=== PATIENT | female | born 1970 | race Two or more races ===

== ENCOUNTER 2024-04-07 13:49 | Inpatient (IN) | payer MEDICAID, OTHER ==
[~2024-04-07] VITALS: Ht 152.4 cm; Wt 50.9 kg
[2024-04-07] MEDS: SODIUM CHLORIDE 0.9% 1,000 ML IV ONE ×2 (15:15)
[2024-04-07 15:32] LABS: Basophils # (auto) 0 10 ^3/uL (0-0.2); Basophils % (auto) 0.4 % (0.0-2.0); Eosinophils # (auto) 0.1 10 ^3/uL (0-0.8); Eosinophils % (auto) 2.3 % (0.0-7.0); Hematocrit 33.9 % (36.0-46.0); Hemoglobin 11.5 g/dL (12.2-16.2); Lymphocytes # (auto) 0.6 10 ^3/uL (0.4-5.4); Lymphocytes % (auto) 18.1 % (10.0-50.0); Mean Corpuscular Hemoglobin 28.8 pg (28.0-32.0); Mean Corpuscular Hgb Conc. 33.9 g/dL (32.0-36.0); Monocytes # (auto) 0.5 10 ^3/uL (0-1.3); Monocytes % (auto) 13.4 % (0.0-12.0); Neutrophils # (auto) 2.2 10 ^3/uL (1.6-8.6); Neutrophils % (auto) 65.8 % (37.0-80.0); Nucleated Red Blood Cells % 0.1 %; Platelet Count (auto) 130 10^3/uL (140-450); Red Blood Cells 3.99 10^6/uL (4.0-5.20); Red Cell Distribution Width 18.7 % (11.8-14.3); White Blood Cell 3.4 10^3/uL (4.4-10.8)
[2024-04-07 15:39] LABS: Chloride 111 mmol/L (98-107); Potassium 3.2 mmol/L (3.5-5.1); Sodium 141 mmol/L (136-145)
[2024-04-07 15:40] LABS: Anion Gap 8 (5-15); Carbon Dioxide 22 mmol/L (20-30)
[2024-04-07 15:41] LABS: Calcium 8.2 mg/dL (8.7-10.4)
[2024-04-07 15:46] LABS: BUN/Creatinine Ratio 20.4 (10.0-20.0); Blood Urea Nitrogen 10 mg/dL (9-23); Glucose 87 mg/dL (74-106)
[2024-04-07 18:28] VITALS: PULSE 84; RESP 20; O2SAT 98
[2024-04-07 19:53] LABS: Urine Bacteria None Seen /hpf (None Seen)
[2024-04-07 20:08] LABS: Urine Blood Negative /uL (Negative); Urine Clarity Clear (Clear); Urine Color Colorless (Yellow); Urine Protein, UAD Negative (Negative); Urine Specific Gravity 1.005 (1.001-1.035); Urine Urobilinogen Normal (Negative); Urine WBC <1 /hpf (0 - 5); Urine pH 6.5 (5.0-9.0)
[2024-04-08] MEDS ORDERED: ONDANSETRON HCL 4 MG/2 ML VIAL IV PRN (01:15)
[2024-04-08] MEDS ORDERED: ACETAMINOPHEN 325 MG TAB PO PRN (01:15)
[2024-04-08] MEDS ORDERED: MORPHINE SULFATE INJ 2 MG/ml SYRG IV PRN (01:15)
[2024-04-08] MEDS ORDERED: NITROGLYCERIN 0.4 MG SL TAB SL PRN (01:15)
[2024-04-08] MEDS ORDERED: DOCUSATE SOD 100 MG CAP PO PRN (01:15)
[2024-04-08 05:11] LABS: Basophils # (auto) 0 10 ^3/uL (0-0.2); Basophils % (auto) 0.3 % (0.0-2.0); Eosinophils # (auto) 0.1 10 ^3/uL (0-0.8); Eosinophils % (auto) 1.6 % (0.0-7.0); Hematocrit 30.4 % (36.0-46.0); Hemoglobin 10.5 g/dL (12.2-16.2); Lymphocytes # (auto) 0.7 10 ^3/uL (0.4-5.4); Lymphocytes % (auto) 17.2 % (10.0-50.0); Mean Corpuscular Hemoglobin 29.3 pg (28.0-32.0); Mean Corpuscular Hgb Conc. 34.5 g/dL (32.0-36.0); Mean Corpuscular Volume 84.8 fL (80.0-100.0); Monocytes # (auto) 0.6 10 ^3/uL (0-1.3); Monocytes % (auto) 14.8 % (0.0-12.0); Neutrophils # (auto) 2.7 10 ^3/uL (1.6-8.6); Neutrophils % (auto) 66.1 % (37.0-80.0); Nucleated Red Blood Cells % 0.4 %; Platelet Count (auto) 115 10^3/uL (140-450); Red Blood Cells 3.58 10^6/uL (4.0-5.20); Red Cell Distribution Width 18.6 % (11.8-14.3); White Blood Cell 4.1 10^3/uL (4.4-10.8)
[2024-04-08 05:27] LABS: Alanine Aminotransferase 21 U/L (7-40); Albumin 2.5 g/dL (3.2-4.8); Alkaline Phosphatase 68 U/L (46-116); Anion Gap 9 (5-15); Aspartate Aminotransferase 53 U/L (13-40); Bilirubin, Total 0.3 mg/dL (0.2-1.0); Blood Urea Nitrogen 8 mg/dL (9-23); Calcium 7.7 mg/dL (8.7-10.4); Carbon Dioxide 21 mmol/L (20-30); Chloride 115 mmol/L (98-107); Glucose 86 mg/dL (74-106); Potassium 3.1 mmol/L (3.5-5.1); Sodium 145 mmol/L (136-145); Total Protein 6.1 g/dL (5.7-8.2)
[2024-04-08] MEDS: SODIUM CHLOR 0.9% PF (SALINE LOCK) 10ML VIAL/SYR IV SCH (06:08)
[2024-04-08 08:00] VITALS: PULSE 71; RESP 16; O2SAT 96
[2024-04-08] MEDS: HYDROcodone-ACET 5/325MG TAB PO PRN (09:35)
[2024-04-08] MEDS: SODIUM CHLORIDE 0.9% 1,000 ML IV SCH (13:49)
[2024-04-08 18:12] VITALS: PULSE 81; RESP 20; O2SAT 98
[2024-04-08] MEDS: POTASSIUM CHL 20MEQ/100ML 100 ML IV SCH (18:22)
[2024-04-08 21:37] VITALS: BP 106/74; PULSE 99; RESP 16; RESP 18; TEMP 98.6; O2SAT 97
[2024-04-08 22:00] VITALS: BP 106/74; PULSE 79; RESP 18; TEMP 98.6; O2SAT 97
[2024-04-08] MEDS: MECLIZINE HCL 25 MG TAB PO PRN (22:14)
[2024-04-08] MEDS: DOCUSATE SOD 100 MG CAP PO SCH (22:14)
[2024-04-09] VITALS (8 sets, daily range): BP systolic 102–116; BP diastolic 62–78; PULSE 73–93; RESP 16–20; TEMP 98.1–98.6; O2SAT 93–97
[2024-04-09 07:09] LABS: Hematocrit 29.4 % (36.0-46.0); Mean Corpuscular Hemoglobin 29.1 pg (28.0-32.0); Mean Corpuscular Hgb Conc. 33.9 g/dL (32.0-36.0); Mean Corpuscular Volume 85.9 fL (80.0-100.0); Platelet Count (auto) 101 10^3/uL (140-450); Red Blood Cells 3.43 10^6/uL (4.0-5.20); Red Cell Distribution Width 19.2 % (11.8-14.3); White Blood Cell 3.6 10^3/uL (4.4-10.8)
[2024-04-09 07:20] LABS: Alanine Aminotransferase 18 U/L (7-40); Alkaline Phosphatase 62 U/L (46-116); Anion Gap 6 (5-15); Calcium 7.6 mg/dL (8.7-10.4); Carbon Dioxide 23 mmol/L (20-30); Chloride 118 mmol/L (98-107); Glucose 81 mg/dL (74-106); Magnesium 1.9 mg/dL (1.6-2.6); Potassium 3.3 mmol/L (3.5-5.1); Sodium 147 mmol/L (136-145)
[2024-04-09 07:21] LABS: Albumin 2.2 g/dL (3.2-4.8); Aspartate Aminotransferase 53 U/L (13-40); BUN/Creatinine Ratio 12.2 (10.0-20.0); Bilirubin, Total 0.3 mg/dL (0.2-1.0); Blood Urea Nitrogen < 5 mg/dL (9-23); Total Protein 5.5 g/dL (5.7-8.2)
[2024-04-09 07:22] LABS: Basophils % (manual) 0 (0.0-2.0); Blast Cells 0; Metamyelocytes % 0; Myelocytes % 0; Promyelocytes % 0; Reactive Lymphocytes 0
[2024-04-09] MEDS: POTASSIUM EFFERVESENT TAB 25 MEQ PO ONE (08:30)
[2024-04-09 08:43] LABS: Hepatitis B Surface Antigen Negative (Negative)
[2024-04-09 09:05] LABS: Hepatitis C Antibody Negative (Negative)
[2024-04-09 09:12] LABS: Band Neutrophils % (manual) 3; Lymphocytes % (manual) 22 (10.0-50.0)
[2024-04-09 09:13] LABS: Anisocytosis Slight; Eosinophils % (manual) 3 (0-7); Monocytes % (manual) 20 (0-12); Platelet Estimate Decreased
[2024-04-09] MEDS: LORazepam 2MG/ML-1ML VIAL IV PRN (10:53)
[2024-04-10 00:36] VITALS: BP 102/59; PULSE 97; RESP 18; TEMP 98.6; O2SAT 92
[2024-04-10 05:00] VITALS: BP 100/65; PULSE 86; RESP 17; TEMP 98.7; O2SAT 94
[2024-04-10 06:27] LABS: Basophils # (auto) 0 10 ^3/uL (0-0.2); Basophils % (auto) 0.3 % (0.0-2.0); Eosinophils # (auto) 0.1 10 ^3/uL (0-0.8); Eosinophils % (auto) 2.7 % (0.0-7.0); Hemoglobin 10.3 g/dL (12.2-16.2); Lymphocytes # (auto) 0.8 10 ^3/uL (0.4-5.4); Lymphocytes % (auto) 20.3 % (10.0-50.0); Mean Corpuscular Hemoglobin 29.2 pg (28.0-32.0); Mean Corpuscular Hgb Conc. 34.2 g/dL (32.0-36.0); Mean Corpuscular Volume 85.5 fL (80.0-100.0); Monocytes # (auto) 0.5 10 ^3/uL (0-1.3); Monocytes % (auto) 12.4 % (0.0-12.0); Neutrophils # (auto) 2.5 10 ^3/uL (1.6-8.6); Neutrophils % (auto) 64.3 % (37.0-80.0); Platelet Count (auto) 110 10^3/uL (140-450); Red Blood Cells 3.51 10^6/uL (4.0-5.20); Red Cell Distribution Width 18.7 % (11.8-14.3); White Blood Cell 3.9 10^3/uL (4.4-10.8)
[2024-04-10 06:38] LABS: Anion Gap 7 (5-15); Carbon Dioxide 24 mmol/L (20-30); Chloride 113 mmol/L (98-107); Potassium 3.4 mmol/L (3.5-5.1); Sodium 144 mmol/L (136-145)
[2024-04-10 06:39] LABS: Calcium 7.9 mg/dL (8.7-10.4)
[2024-04-10 06:44] LABS: Blood Urea Nitrogen 8 mg/dL (9-23); Glucose 85 mg/dL (74-106)
[2024-04-10 07:25] LABS: INR 1.1 (0.9-1.15); Prothrombin Time 11.6 sec (9.3-11.8)
[2024-04-10 08:05] VITALS: PULSE 89
[2024-04-10 09:00] VITALS: BP 97/56; PULSE 87; RESP 16; TEMP 99.5; O2SAT 95
[2024-04-10] MEDS ORDERED: MECL-90 PO (09:54)
[2024-04-10] MEDS: POTASSIUM EFFERVESENT TAB 25 MEQ PO ONE (11:00)
[2024-04-10] MEDS: SODIUM CHLORIDE 0.9% 1,000 ML IV SCH (11:04)
[2024-04-10 13:00] VITALS: BP 98/63; PULSE 82; RESP 16; TEMP 98.4; O2SAT 97
[2024-04-10 17:00] VITALS: BP 92/59; PULSE 100; RESP 16; TEMP 99.1; O2SAT 96
== END 2024-04-10 18:00 | disposition home or self-care (01) | DRG 111 ==
LOC: ER 13:49 → TELE 04-08 01:02 → TELE-CENTR 04-08 21:35
PROVIDERS: ADMIT Internal Medicine Geriatric Medicine; ATTEND Emergency Medicine
DX: H81.13 Benign paroxysmal vertigo, bilateral (principal); L40.50 Arthropathic psoriasis, unspecified; I95.9 Hypotension, unspecified; E87.6 Hypokalemia; M54.2 Cervicalgia; Z82.49 Family history of ischemic heart disease and other diseases of the circulatory system
CPT/HCPCS: 36415; 70450; 70551; 80048; 80053; 81001; 82962; 83036; 83735; 85007; 85025; 85027; 85610; 86803; 87340; 93005; 96360; 96361; 97163; 99291; G0378; J3480

== ENCOUNTER 2024-05-15 10:59 | Inpatient (IN) | payer MEDICAID ==
[~2024-05-15] VITALS: Ht 165.1 cm; Wt 49.0 kg
[~2024-05-15 10:59] MED LIST: MECL-90 PO
[2024-05-15 12:30] LABS: Urine Bacteria None Seen /hpf (None Seen)
[2024-05-15 12:51] LABS: Urine Blood Negative /uL (Negative); Urine Clarity Clear (Clear); Urine Color Yellow (Yellow); Urine Mucus FEW (None Seen); Urine Protein, UAD TRACE (Negative); Urine Specific Gravity 1.016 (1.001-1.035); Urine Urobilinogen Normal (Negative); Urine WBC 21 /hpf (0 - 5)
[2024-05-15 12:52] LABS: Basophils # (auto) 0.1 10 ^3/uL (0-0.2); Basophils % (auto) 1.6 % (0.0-2.0); Eosinophils # (auto) 0.1 10 ^3/uL (0-0.8); Eosinophils % (auto) 1.9 % (0.0-7.0); Hemoglobin 11.7 g/dL (12.2-16.2); Lymphocytes # (auto) 0.7 10 ^3/uL (0.4-5.4); Lymphocytes % (auto) 14.9 % (10.0-50.0); Mean Corpuscular Hgb Conc. 33.5 g/dL (32.0-36.0); Mean Corpuscular Volume 86.5 fL (80.0-100.0); Monocytes # (auto) 0.8 10 ^3/uL (0-1.3); Monocytes % (auto) 17.1 % (0.0-12.0); Neutrophils # (auto) 3.2 10 ^3/uL (1.6-8.6); Neutrophils % (auto) 64.5 % (37.0-80.0); Nucleated Red Blood Cells % 0.2 %; Platelet Count (auto) 176 10^3/uL (140-450); Red Blood Cells 4.05 10^6/uL (4.0-5.20); Red Cell Distribution Width 16.4 % (11.8-14.3)
[2024-05-15 13:00] LABS: Chloride 109 mmol/L (98-107); Potassium 3.3 mmol/L (3.5-5.1); Sodium 141 mmol/L (136-145)
[2024-05-15 13:01] LABS: Anion Gap 9 (5-15); Carbon Dioxide 23 mmol/L (20-31)
[2024-05-15 13:02] LABS: Calcium 8.2 mg/dL (8.7-10.4)
[2024-05-15 13:07] LABS: BUN/Creatinine Ratio 12.8 (10.0-20.0); Blood Urea Nitrogen 6 mg/dL (9-23); Glucose 78 mg/dL (74-106)
[2024-05-15 13:51] VITALS: BP 103/58; PULSE 73; RESP 16; TEMP 97.5; O2SAT 100
[2024-05-15] MEDS: cefTRIAXone 1GM/50ML D5W 50 ML IV ONE (14:50)
[2024-05-15] MEDS ORDERED: MECLIZINE HCL 25 MG TAB PO PRN (15:30)
[2024-05-15] MEDS ORDERED: ONDANSETRON HCL 4 MG/2 ML VIAL IV PRN (15:30)
[2024-05-15] MEDS ORDERED: HYDROcodone-ACET 5/325MG TAB PO PRN (15:30)
[2024-05-15] MEDS ORDERED: DOCUSATE SOD 100 MG CAP PO PRN (15:30)
[2024-05-15] MEDS ORDERED: ACETAMINOPHEN 325 MG TAB PO PRN (15:30)
[2024-05-15] MEDS: POTASSIUM CHL 20 Meq TABLET PO ONE (15:42)
[2024-05-15] MEDS ORDERED: NITROGLYCERIN 0.4 MG SL TAB SL PRN (15:45)
[2024-05-15] MEDS ORDERED: MORPHINE SULFATE INJ 2 MG/ml SYRG IV PRN (15:45)
[2024-05-15 16:48] VITALS: BP 106/62; PULSE 86; RESP 18; TEMP 98.2; O2SAT 98
[2024-05-15 19:59] VITALS: RESP 16; O2SAT 96
[2024-05-15 21:32] VITALS: PULSE 83; RESP 16; O2SAT 97
[2024-05-16] VITALS (9 sets, daily range): BP systolic 91–126; BP diastolic 57–69; PULSE 79–89; RESP 16–20; TEMP 98–98.7; O2SAT 96–99
[2024-05-16] MEDS ORDERED: INFLUENZA TRIVALENT 2024-2025 0.5 ML INJ IM ONE (02:30)
[2024-05-16 05:26] LABS: Basophils # (auto) 0 10 ^3/uL (0-0.2); Basophils % (auto) 0.3 % (0.0-2.0); Eosinophils # (auto) 0.2 10 ^3/uL (0-0.8); Eosinophils % (auto) 5.9 % (0.0-7.0); Hematocrit 30.2 % (36.0-46.0); Lymphocytes # (auto) 0.7 10 ^3/uL (0.4-5.4); Lymphocytes % (auto) 17.3 % (10.0-50.0); Mean Corpuscular Hemoglobin 28.6 pg (28.0-32.0); Mean Corpuscular Hgb Conc. 33.2 g/dL (32.0-36.0); Mean Corpuscular Volume 86.1 fL (80.0-100.0); Monocytes # (auto) 0.6 10 ^3/uL (0-1.3); Monocytes % (auto) 15.2 % (0.0-12.0); Neutrophils # (auto) 2.3 10 ^3/uL (1.6-8.6); Neutrophils % (auto) 61.3 % (37.0-80.0); Nucleated Red Blood Cells % 0.2 %; Platelet Count (auto) 139 10^3/uL (140-450); Red Blood Cells 3.51 10^6/uL (4.0-5.20); White Blood Cell 3.8 10^3/uL (4.4-10.8)
[2024-05-16 05:39] LABS: Albumin 2.4 g/dL (3.2-4.8); Alkaline Phosphatase 48 U/L (46-116); Anion Gap 7 (5-15); Aspartate Aminotransferase 43 U/L (13-40); BUN/Creatinine Ratio 15.6 (10.0-20.0); Blood Urea Nitrogen 7 mg/dL (9-23); Calcium 7.9 mg/dL (8.7-10.4); Carbon Dioxide 24 mmol/L (20-31); Chloride 110 mmol/L (98-107); Glucose 103 mg/dL (74-106); Potassium 3.1 mmol/L (3.5-5.1); Sodium 141 mmol/L (136-145)
[2024-05-16 05:40] LABS: Bilirubin, Total 0.3 mg/dL (0.2-1.0); Total Protein 6.7 g/dL (5.7-8.2)
[2024-05-16 05:52] LABS: Alanine Aminotransferase < 9 U/L (7-40)
[2024-05-16] MEDS: cefTRIAXone 1GM/50ML D5W 50 ML IV SCH (09:48)
[2024-05-16] MEDS: FAMOTIDINE (10MG/ML) 2ML VL IV SCH (09:49)
[2024-05-16] MEDS: POTASSIUM CHL 20 Meq TABLET PO SCH (21:29)
[2024-05-17] VITALS (11 sets, daily range): BP systolic 87–109; BP diastolic 47–69; PULSE 79–96; RESP 12–22; TEMP 98.1–98.7; O2SAT 97–99
[2024-05-17 07:05] LABS: Basophils # (auto) 0 10 ^3/uL (0-0.2); Basophils % (auto) 0.3 % (0.0-2.0); Eosinophils # (auto) 0.2 10 ^3/uL (0-0.8); Hematocrit 33.1 % (36.0-46.0); Lymphocytes # (auto) 0.7 10 ^3/uL (0.4-5.4); Lymphocytes % (auto) 23.7 % (10.0-50.0); Mean Corpuscular Hemoglobin 28.6 pg (28.0-32.0); Mean Corpuscular Hgb Conc. 33.1 g/dL (32.0-36.0); Mean Corpuscular Volume 86.2 fL (80.0-100.0); Monocytes # (auto) 0.5 10 ^3/uL (0-1.3); Neutrophils # (auto) 1.6 10 ^3/uL (1.6-8.6); Nucleated Red Blood Cells % 0.1 %; Platelet Count (auto) 139 10^3/uL (140-450); Red Blood Cells 3.84 10^6/uL (4.0-5.20); Red Cell Distribution Width 16.1 % (11.8-14.3)
[2024-05-17 07:24] LABS: Alanine Aminotransferase 12 U/L (7-40); Alkaline Phosphatase 50 U/L (46-116); Anion Gap 7 (5-15); BUN/Creatinine Ratio 14.3 (10.0-20.0); Blood Urea Nitrogen 6 mg/dL (9-23); Calcium 8.2 mg/dL (8.7-10.4); Carbon Dioxide 24 mmol/L (20-31); Chloride 113 mmol/L (98-107); Glucose 83 mg/dL (74-106); Potassium 4.4 mmol/L (3.5-5.1); Sodium 144 mmol/L (136-145)
[2024-05-17 07:25] LABS: Albumin 2.4 g/dL (3.2-4.8); Aspartate Aminotransferase 53 U/L (13-40); Bilirubin, Total 0.2 mg/dL (0.2-1.0)
[2024-05-18] VITALS (9 sets, daily range): BP systolic 90–106; BP diastolic 53–67; PULSE 82–88; RESP 16–20; TEMP 36.8; O2SAT 96–100
[2024-05-18] MEDS ORDERED: FAMO20TA10 PO (11:15)
[2024-05-18] MEDS ORDERED: SENN-62 PO (11:15)
[2024-05-18] MEDS ORDERED: CALC625T13 PO (11:15)
[2024-05-18] MEDS ORDERED: MECL1TAB42 PO (11:15)
[2024-05-18] MEDS ORDERED: POLYPOW59 PO (11:15)
[2024-05-18] MEDS ORDERED: ZOFR4T PO (11:15)
[2024-05-19 01:00] VITALS: BP 96/61; PULSE 70; RESP 18; TEMP 98.8; O2SAT 96
[2024-05-19 05:00] VITALS: BP 94/58; PULSE 78; RESP 18; TEMP 98.3; O2SAT 97
[2024-05-19 08:00] VITALS: PULSE 80; PULSE 88; RESP 16; O2SAT 94
[2024-05-19] MEDS: INFLUENZA TRIVALENT 2024-2025 0.5 ML INJ IM ONE (09:00)
[2024-05-19 09:21] VITALS: BP 99/62; PULSE 83; RESP 18; TEMP 97.9; O2SAT 94
== END 2024-05-19 09:55 | disposition home or self-care (01) | DRG 248 ==
LOC: ER 10:59 → TELE 15:44 → TELE-WESTW 20:48
PROVIDERS: ADMIT Student in an Organized Health Care Education/Training Program; ATTEND Student in an Organized Health Care Education/Training Program
DX: A04.9 Bacterial intestinal infection, unspecified (principal); D69.6 Thrombocytopenia, unspecified; E44.1 Mild protein-calorie malnutrition; E88.09 Other disorders of plasma-protein metabolism, not elsewhere classified; E86.9 Volume depletion, unspecified; N30.00 Acute cystitis without hematuria; D64.9 Anemia, unspecified; E87.6 Hypokalemia; F10.20 Alcohol dependence, uncomplicated; K59.09 Other constipation; W18.39XA Other fall on same level, initial encounter; Y93.89 Activity, other specified; Y92.89 Other specified places as the place of occurrence of the external cause; Y99.8 Other external cause status; Y90.9 Presence of alcohol in blood, level not specified; Z68.1 Body mass index [BMI] 19.9 or less, adult
CPT/HCPCS: 36415; 70450; 70486; 71046; 80048; 80053; 81001; 85025; 87086; 93005; 96365; 97110; 97116; 97163; G0378; J3490

== ENCOUNTER 2024-05-22 13:05 | Emergency (ER) | payer MEDICAID ==
[~2024-05-22] VITALS: Ht 152.4 cm; Wt 98.3 kg
[~2024-05-22 13:05] MED LIST changes: +CALC625T13 PO; +FAMO20TA10 PO; +MECL1TAB42 PO; +POLYPOW59 PO; +SENN-62 PO; +ZOFR4T PO
--- NOTE | 2024-05-22 13:23 | ED.PDOC ---
History of Present Illness HPI Comments 53-year-old female brought in by EMS presents to the ER with a chief complaint of muscle pain s/p mechanical fall at home x 1 hour ago. Patient is a poor historian. Patient states that she was on her porch and had a fall onto the dirt and hurt her right shoulder, neck, right ear and right eye. Patient had no LOC and has no pain upon palpation. Patient did not hit her head. Patient has no deformities. Patient has chronic pain "all over". No other symptoms or modifying factors present at this time. Chief Complaint: Fall Injury Time Seen by MD: 13:10 Primary Care Provider: UNKNOWN Reviewed Notes: Medications, Allergies Allergies: Coded Allergies: No Known Drug Allergy (Verified Allergy, Unknown, 04/07/24) Home Meds Active Scripts Calcium Polycarbophil (Fiber Tabs) 625 Mg Tab, 625 MG PO BID for 30 Days, #60 TAB 0 Refills Prov:ALICIA HUNTER MD 05/18/24 Polyethylene Glycol 3350 (Goodsense Clearlax) 17 Gm/Scoop Pow, 17 GM PO DAILY for 7 Days, #10 POW 0 Refills Prov:ALICIA HUNTER MD 05/18/24 Sennosides-Docusate Sodium (Senokot S) 1 Tab Tab, 1 TAB PO BID for 14 Days, #28 TAB 0 Refills Prov:ALICIA HUNTER MD 05/18/24 Meclizine HCl (Meclizine 25) 25 Mg Tab, 25 MG PO TIDPRN PRN for 5 Days, #15 TAB 0 Refills Prov:ALICIA HUNTER MD 05/18/24 Ondansetron Odt 4MG Tab (ZOFRAN PO) 4 Mg Tb, 4 MG PO TIDPRN PRN for 5 Days, #15 TAB ODT TAB-DISSOLVE IN MOUTH, THEN SWALLOW Prov:ALICIA HUNTER MD 05/18/24 Famotidine (PEPCID TABLET) 20 Mg Tb, 1 TAB PO BID for 30 Days, #60 TAB 0 Refills Prov:ALICIA HUNTER MD 05/18/24 Meclizine Hcl (Meclizine Hcl) 25 Mg Tab, 25 MG PO Q8HPRN PRN for 30 Days, #90 TAB Prov:HAN AYALA 04/10/24 Information Source: Patient, Emergency Med Personnel Mode of Arrival: EMS Severity: Moderate Timing: Minutes Duration: Since onset Prehospital treatment: None Past Medical History PAST MEDICAL HISTORY: Denies Surgical History: Denies all surgeries CELLAR PACKER History: No Pertinent CELLAR PACKER History Family History Family History: Reviewed,noncontributory to illness, Unknown Social History Smoker: Non-Smoker Alcohol: Sober Drugs: Denies Drug Use Lives In: Home Constitutional: denies: chills, diaphoresis, fatigue, fever, malaise, sweats, weakness, others EENTM: denies: blurred vision, double vision, ear bleeding, ear discharge, ear drainage, ear pain, ear ringing, eye pain, eye redness, hearing loss, mouth pain, mouth swelling, nasal discharge, nose bleeding, nose congestion, nose pain, photophobia, tearing, throat pain, throat swelling, voice changes, others Respiratory: denies: cough, hemoptysis, orthopnea, SOB at rest, shortness of breath, SOB with excertion, stridor, wheezing, others Cardiovascular: denies: chest pain, dizzy spells, diaphoresis, Dyspnea on exertion, edema, irregular heart beat, left arm pain, lightheadedness, palpitat ions, PND, syncope, others Gastrointestinal: denies: abdomen distended, abdominal pain, blood streaked bow els, constipated, diarrhea, dysphagia, difficulty swallowing, hematemesis, melena, nausea, poor appetite, poor fluid intake, rectal bleeding, rectal pain, vomiting, others Genitourinary: denies: abnormal vagina bleeding, burning, dyspareunia, dysuria, flank pain, frequency, hematuria, incontinence, pain, , vagina discharge, urgency, others Neurological: denies: dizziness, fainting, headache, left sided numbness, left sided weakness, numbness, paresthesia, pre-existing deficit, right sided numbness, right sided weakness, seizure, speech problems, tingling, tremors, weakness, others Musculoskeletal: reports: muscle pain; denies: back pain, gout, joint pain, joint swelling, muscle stiffness, neck pain, others Integumetry: denies: bruises, change in color, change in hair/nails, dryness, laceration, lesions, lumps, rash, wounds, others Allergic/Immunocompromised: denies: Difficulty Healing, Frequent Infections, Hives, Itching, others Hematologic/Lymphatic: denies: anemia, blood clots, easy bleeding, easy bruising, swollen glands, others Endocrine: denies: excessive hunger, excessive sweating, excessive thirst, excessive urination, flushing, intolerance to cold, intolerance to heat, unexplained weight gain, unexplained weight loss, others Psychiatric: denies: anxiety, bipolar disorder, depression, hopeless, panic di sorder, schizophrenia, sleepless, suicidal, others All Other Systems: Reviewed and Negative Physical Exam General Appearance: Mild Distress, Thin HEENT: Normal ENT Inspection, Pharynx Normal, TMs Normal Neck: Full Range of Motion, Non-Tender, Normal, Normal Inspection Respiratory: Chest Non-Tender, Lungs Clear, No Accessory Muscle Use, No Respiratory Distress, Normal Breath Sounds Cardiovascular: No Edema, No JVD, No Murmur, No Gallop, Normal Peripheral Pulses, Regular Rate/Rhythm Breast Exam: Deferred Gastrointestinal: No Organomegaly, Non Tender, No Pulsatile Mass, Normal Bowel Sounds, Soft Genitalia: Deferred Pelvic: Deferred Rectal: Deferred Extremities: No calf tenderness, Normal capillary refill, Normal inspection, Normal range of motion, Non-tender, No pedal edema Musculoskeletal : Apperance: Normal Neurologic: Alert, adjuster piano action II-XII nml as Tested, No Motor Deficits, Normal Affect, Normal Mood, No Sensory Deficits Cerebellar Function: NOT DONE Reflexes: NOT DONE Skin: Dry, Normal Color, Warm Peripheral Pulses: 3+ Radial (R), 3+ Radial (L) Lymphatic: No Adenopathy Was a procedure done? Was a procedure done?: No Differential Dx Considerations may include: Musculoskeletal pain Anxiety X-Ray, Labs, Meds, VS Vital Signs Date Time Temp Pulse Resp B/P (MAP) Pulse Ox O2 Delivery O2 Flow Rate FiO2 05/22/24 13:17 91 05/22/24 13:14 98.3 84 16 116/74 (88) 100 Patient alert. Not consistent with her history. Physical examination pristine. Vitals stable. No bruising throughout her body. Right shoulder not swollen. Bilateral knee not swollen. Moving all extremities. No neck swelling. No neck tenderness. No head swelling. No bruising on the scalp. No bruises. She has lost lot of weight. Chronic symptoms. Denies chest pain. Denies shortness a breath. No leg swelling. No calf tenderness. Was given pain medication. Reviewed her history. Explained to the patient. Was told to follow up with her primary care physician. Was told to come back if there is any problem. Time of 1ST Reevaluation: 13:31 Reevaluation 1ST: Improved Patient Education/Counseling: Diagnosis, Treatment, Prognosis Family Education/Counseling: No Family Present Departure 1 Departure Time of Disposition: 13:32 Impression: Primary Impression: Fibromyalgia Additional Impression: Musculoskeletal pain Disposition: 01 HOME / SELF CARE / HOMELESS Condition: Good Discharged With: Self Critical Care Note Critical Care Time?: No Stability Stability form required: No I personally scribed for LUH ZIMMERMAN MD ([email or web address]) on 05/22/24 at 13:23. Electronically submitted by Mateo Amador ([email or web address]). LUH ZIMMERMAN MD May 22, 2024 13:23
[2024-05-22 13:37] VITALS: BP 98/53; PULSE 95; RESP 15; TEMP 98.8; O2SAT 100
--- NOTE | 2024-05-22 13:39 | ECG ---
[facility] Test Date: 2024-05-22 Test Time: 13:17:50 Pat Name: CHEY BOLTON Department: er Room: Gender: F Expert Medical Writer: gp : 1970 Requested By: LUH ZIMMERMAN Order Number: [id number] Reading MD: Jak Olivier Measurements Intervals [place] Rate: 91 P: 38 IA: 141 QRS: 27 QRSD: 126 T: 36 QT: 405 QTc: 499 Interpretive Statements Sinus rhythm Nonspecific intraventricular conduction delay Electronically Signed On 05-24-2024 11:53:36 PST by Jak Olivier Please click the below link to view image of tracing.
[2024-05-22] MEDS: KETOROLAC TROMETH 60MG/2ML VIAL IM ONE (13:52)
== END 2024-05-22 13:33 | disposition home or self-care (01) ==
LOC: EDBD 13:05 → ER 13:09
DX: M79.7 Fibromyalgia (principal); M54.2 Cervicalgia; M25.511 Pain in right shoulder; H92.01 Otalgia, right ear; Z79.899 Other long term (current) drug therapy
CPT/HCPCS: 93005; 96372; 99283; J1885

== ENCOUNTER → 2024-06-01 | Outpatient (CLI) | payer MEDICAID ==
[2024-06-01 09:48] LABS: Urine Bacteria FEW /hpf (None Seen); Urine Blood Negative /uL (Negative); Urine Clarity Clear (Clear); Urine Color Yellow (Yellow); Urine Protein, UAD Negative (Negative); Urine Urobilinogen Normal (Negative); Urine WBC 3 /hpf (0 - 5); Urine pH 6.5 (5.0-9.0)
[2024-06-01 09:55] LABS: INR 1.03 (0.9-1.15); Partial Thromboplastin Time 32.4 SEC (24.5-34.5); Prothrombin Time 10.9 sec (9.3-11.8)
[2024-06-01 10:10] LABS: Amphetamine Screen, Urine Neg (NEGATIVE)
[2024-06-01 10:11] LABS: Barbiturate Scree,Urine Neg (NEGATIVE); Benzodiazephine Screen, Urine Neg (NEGATIVE); Cannabinoid Screen, Urine Neg (NEGATIVE); Cocaine Screen, Urine Neg (NEGATIVE); Opiate Scree,Urine Neg (NEGATIVE); Phencyclidine Screen, Urine Neg (NEGATIVE)
[2024-06-01 10:15] LABS: Alanine Aminotransferase 22 U/L (7-40); Albumin 2.8 g/dL (3.2-4.8); Alkaline Phosphatase 68 U/L (46-116); Anion Gap 10 (5-15); Aspartate Aminotransferase 55 U/L (13-40); BUN/Creatinine Ratio 10.9 (10.0-20.0); Bilirubin, Total 0.3 mg/dL (0.2-1.0); Blood Alcohol < 3.0 mg/dL (<10); Blood Urea Nitrogen 6 mg/dL (9-23); CRP High Sensitivity 0.58 mg/dL (<1.0); Calcium 8.4 mg/dL (8.7-10.4); Carbon Dioxide 23 mmol/L (20-31); Chloride 109 mmol/L (98-107); Cholesterol 116 mg/dL (< 200); Glucose 85 mg/dL (74-106); HDL Cholesterol 33 mg/dL (40-59); LDL Cholesterol 65 mg/dL (< 100); Potassium 3.3 mmol/L (3.5-5.1); Sodium 142 mmol/L (136-145); Total Protein 7.7 g/dL (5.7-8.2); Triglycerides 76 mg/dL (< 150)
[2024-06-01 10:19] LABS: % Iron Saturation 29.1 % (15-50)
[2024-06-01 10:30] LABS: Folate (Folic Acid) 10.85 ng/mL (>5.38)
[2024-06-01 10:31] LABS: Free T4 (Free Thyroxine) 0.95 ng/dL (0.89-1.76)
[2024-06-01 10:51] LABS: Erythrocyte Sedimentation Rate 97 mm/hr (0-20)
[2024-06-02 08:06] LABS: Estradiol 11.6 pg/mL (.); Immunoglobulin A 695 mg/dL (87-352)
[2024-06-02 12:06] LABS: Anti-Nuclear Antibody Direct Positive (Negative)
[2024-06-03 09:06] LABS: Chlamydia Trachomatis, NAA Negative (Negative); Neisseria gonorrhoeae, NAA Negative (Negative)
[2024-06-03 14:06] LABS: t-Transglutaminase (tTG) IgA <2 U/mL (0-3)
[2024-06-04 09:20] LABS: Hepatitis B Core Total AB Negative (Negative)
[2024-06-04 09:31] LABS: Hepatitis A Ab IgM Negative; Hepatitis B Core IgM Negative; Hepatitis B Surface Antibody Negative (Negative); Hepatitis B Surface Antigen Negative (Negative); Hepatitis C Antibody Negative (Negative)
[2024-06-04 09:35] LABS: Hepatitis A Total Antibody Positive (Negative)
[2024-06-06 06:07] LABS: Endomysial IgA Antibody Negative (Negative)
== END | disposition home or self-care (01) ==
LOC: LAB 08:55
PROVIDERS: ATTEND Internal Medicine
DX: D64.9 Anemia, unspecified (principal); R63.4 Abnormal weight loss; E83.51 Hypocalcemia
CPT/HCPCS: 36415; 80053; 80061; 80074; 80307; 80320; 81001; 82533; 82670; 82746; 82784; 83036; 83516; 83540; 83550; 84439; 85045; 85610; 85652; 85730; 86038; 86141; 86255; 86704; 86706; 86708; 86803; 87340

== ENCOUNTER → 2024-06-07 | Outpatient (CLI) | payer MEDICAID | END | disposition home or self-care (01) | LOC: LAB 09:33 | PROVIDERS: ATTEND Internal Medicine | DX: D64.9 Anemia, unspecified (principal); E83.52 Hypercalcemia; R79.89 Other specified abnormal findings of blood chemistry | CPT/HCPCS: 82533 ==

== ENCOUNTER 2024-08-20 15:32 | Inpatient (IN) | payer MEDICAID ==
[~2024-08-20] VITALS: Ht 152.4 cm; Wt 20.0 kg
--- NOTE | 2024-08-20 15:58 | ED.PDOC ---
GI ASSESSMENT HPI Comments HPI: Poor Historian. HPI: 54-year-old female presents to the ED with a chief complaint of melena onset 1 month. Daughter states the patient has been experiencing dark stool for the past month, notices blood when she wipes, lower abdominal pain, and has 2-3 bowel movements weekly. Patient was at her follow up appointment with her Medical Education Specialist and was advised to come to ED. ssis architect she was working her up for possible scleroderma. Patient is not on any blood thinners. Over the last year patient has been progressively getting worse as far as weakness and weight loss. Initial Vital Signs: Temp : 99.1 F BP: 95/67 HR: 83 RR:14 SpO2: 100% RA Past Medical History: anemia, celiac disease, vertigo, constipation Past Surgical History: Denies Social History: Denies smoking, ETOH, or drug use. REVIEW OF SYSTEMS: CONSTITUTIONAL: Denies acute: fever, diaphoresis, chills, HEAD: Denies acute: headache, photophobia Eyes: Denies acute: Double vision, vision loss, eye pain, eye discharge. EARS: Denies acute: tinnitus, hearing loss, ear discharge, ear pain, THROAT: Denies acute: sore throat, swelling, difficulty swallowing , pain with swallowing, change in voice. NECK: Denies acute: neck pain, neck swelling, stiff neck. HEART: Denies acute : chest pain, palpitations, LUNGS: Denies acute: SOB, wheezing, cough, hemoptysis ABDOMEN: Denies acute: Nausea, Vomiting, diarrhea, , hematemesis, SKIN: Denies acute: rash, redness, lesions, itchiness. EXTREMITIES: Denies acute: calf pain, numbness, tingling, weakness, denies pain in extremity. Denies acute: Low back pain. Neuro: Denies acute: focal neurological deficit, motor or sensory focal neurological deficit, tremors, seizure like activity, confusion, dizziness, change in mental status, loss of bowel or bladder function, cauda equina like symptoms. : Denies acute: dysuria, hematuria, flank pain, PSYCH: Denies acute: hallucination, suicidal ideation, homicidal ideation. FEMALE: Denies acute: abnormal vaginal bleeding, foul odor, unusual discharge. PHYSICAL EXAM: General: no acute distress, awake and alert. Head: normocephalic, atraumatic. Neck: supple, trachea is midline, no swelling. Throat: Normal phonation. Eyes:, no erythema, no purulent discharge, no proptosis, no icterus. Heart: regular rate, regular rhythm, no significant murmur appreciated. Lungs: no apparent respiratory distress, Able to speak in full sentences. No wheezing, no rhonchi, no crackles. No stridors Clear to auscultation bilaterally. Abdomen: Right lower quadrant tender to palpation, non distended, soft, no guarding, no rebound, + bowel sounds. Neuro: Awake, Alert, oriented to name, self, situation, follows commands GCS=15. Speech is normal. Skin: no petechia, no purpura, no cyanosis, slightly-pale, not jaundice. Scleroderma like features Lower extremities: --no - Pitting edema no deformity, no focal swelling, no calf TTP. Makes eye contact. moves all four extremities. Face: no apparent facial droop. Ambulating in the ED independently. Stroke: finger to nose cerebellar testing is intact. No pronator drift. 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 Chief Complaint: GI Bleed Time Seen by MD: 15:42 Primary Care Provider: UNKNOWN Reviewed Notes: Medications, Allergies Allergies: Coded Allergies: No Known Drug Allergy (Verified Allergy, Unknown, 04/07/24) Home Meds Active Scripts Calcium Polycarbophil (Fiber Tabs) 625 Mg Tab, 625 MG PO BID for 30 Days, #60 TAB 0 Refills Prov:ALICIA HUNTER MD 05/18/24 Polyethylene Glycol 3350 (Goodsense Clearlax) 17 Gm/Scoop Pow, 17 GM PO DAILY for 7 Days, #10 POW 0 Refills Prov:ALICIA HUNTER MD 05/18/24 Sennosides-Docusate Sodium (Senokot S) 1 Tab Tab, 1 TAB PO BID for 14 Days, #28 TAB 0 Refills Prov:ALICIA HUNTER MD 05/18/24 Meclizine HCl (Meclizine 25) 25 Mg Tab, 25 MG PO TIDPRN PRN for 5 Days, #15 TAB 0 Refills Prov:ALICIA HUNTER MD 05/18/24 Ondansetron Odt 4MG Tab (ZOFRAN PO) 4 Mg Tb, 4 MG PO TIDPRN PRN for 5 Days, #15 TAB ODT TAB-DISSOLVE IN MOUTH, THEN SWALLOW Prov:ALICIA HUNTER MD 05/18/24 Famotidine (PEPCID TABLET) 20 Mg Tb, 1 TAB PO BID for 30 Days, #60 TAB 0 Refills Prov:ALICIA HUNTER MD 05/18/24 Meclizine Hcl (Meclizine Hcl) 25 Mg Tab, 25 MG PO Q8HPRN PRN for 30 Days, #90 TAB Prov:HAN AYALA 04/10/24 Information Source: Patient, Relative Mode of Arrival: EMS Timing: Months Duration: Since onset Prehospital treatment: None Quality: Sharp Vomitus: None Stool: Black Severity: Moderate Recent: None Recent Hx of: None Pain Location: Suprapubic Modifying Factors: Nothing Associated sign and symptoms: Abdominal Pain, Blood in Stool Past Medical History PAST MEDICAL HISTORY: Anemia, Arthritis, Denies Past Medical History (Other): celiac disease, Scleredema Surgical History: Denies all surgeries APRON OPERATOR History: No Pertinent APRON OPERATOR History Family History Family History: Reviewed,noncontributory to illness, Unknown Social History Smoker: Non-Smoker Alcohol: Sober Drugs: Denies Drug Use Lives In: Home Was a procedure done? Was a procedure done?: No GI differential Dx Differential Diagnosis: Other (Diverticulitis, colitis, fistula, neoplasm, hemorrhoids, anal fissures, constipation, Crohn's disease, ulcerative colitis) X-Ray, Labs, Meds, VS Vital Signs Date Time Temp Pulse Resp B/P (MAP) Pulse Ox O2 Delivery O2 Flow Rate FiO2 08/20/24 19:05 86 18 100 Room Air 08/20/24 19:05 98.9 86 18 96/64 (75) 100 98.9 08/20/24 15:52 99.1 83 14 95/67 (76) 100 Lab Test 08/20/24 17:14 08/20/24 16:13 08/20/24 16:04 Range/Units Troponin I High Sensitivity 7 7 </=34 ng/L White Blood Count 4.1 L 4.4-10.8 10^3/uL Red Blood Count 3.50 L 4.0-5.20 10^6/uL Hemoglobin 9.9 L 12.2-16.2 g/dL Hematocrit 30.1 L 36.0-46.0 % Mean Corpuscular Volume 86.1 80.0-100.0 fL Mean Corpuscular Hemoglobin 28.4 28.0-32.0 pg Mean Corpuscular Hemoglobin Concent 33.0 32.0-36.0 g/dL Red Cell Distribution Width 14.6 H 11.8-14.3 % Platelet Count 170 140-450 10^3/uL Mean Platelet Volume 9.1 6.9-10.8 fL Neutrophils (%) (Auto) 64.1 37.0-80.0 % Lymphocytes (%) (Auto) 24.4 10.0-50.0 % Monocytes (%) (Auto) 10.8 0.0-12.0 % Eosinophils (%) (Auto) 0.5 0.0-7.0 % Basophils (%) (Auto) 0.2 0.0-2.0 % Neutrophils # (Auto) 2.6 1.6-8.6 10 ^3/uL Lymphocytes # (Auto) 1.0 0.4-5.4 10 ^3/uL Monocytes # (Auto) 0.4 0-1.3 10 ^3/uL Eosinophils # (Auto) 0 0-0.8 10 ^3/uL Basophils # (Auto) 0 0-0.2 10 ^3/uL Nucleated Red Blood Cells 0.1 % Prothrombin Time 10.2 9.3-11.8 sec Prothrombin Time INR 0.96 0.9-1.15 Activated Partial Thromboplast Time 32.0 24.5-34.5 SEC Sodium Level 140 136-145 mmol/L Potassium Level 3.6 3.5-5.1 mmol/L Chloride Level 108 H 98-107 mmol/L Carbon Dioxide Level 25 20-31 mmol/L Anion Gap 7 5-15 Blood Urea Nitrogen 9 9-23 mg/dL Creatinine 0.48 L 0.550-1.02 mg/dL Glomerular Filtration Rate Calc 114 >90 mL/min BUN/Creatinine Ratio 18.8 10.0-20.0 Serum Glucose 82 74-106 mg/dL Lactic Acid Level 1.3 0.4-2.0 mmol/L Calcium Level 8.4 L 8.7-10.4 mg/dL Magnesium Level 2.0 1.6-2.6 mg/dL Total Bilirubin 0.3 0.2-1.0 mg/dL Aspartate Amino Transferase (AST) 32 13-40 U/L Alanine Aminotransferase (ALT) 12 7-40 U/L Alkaline Phosphatase 55 46-116 U/L Total Protein 7.4 5.7-8.2 g/dL Albumin 3.1 L 3.2-4.8 g/dL Lipase 52 12-53 U/L Urine Color Light-yellow Yellow Urine Clarity Clear Clear Urine pH 6.5 5.0-9.0 Urine Specific [place] 1.013 1.001-1.035 Urine Protein Negative Negative Urine Ketones Negative Negative Urine Blood Negative Negative /uL Urine Nitrite Negative Negative Urine Bilirubin Negative Negative Urine Urobilinogen Normal Negative mg/dL Urine Leukocyte Esterase 1+ Negative /uL Urine RBC 1 0 - 4 /hpf Urine Microscopic WBC 3 0-5 /HPF Urine Squamous Epithelial Cells Few <5 /hpf Urine Bacteria Few H None Seen /hpf Urine Glucose Normal Normal mg/dL Current Medications Medications (Trade) Dose Ordered Sig/Preet Route Start Time Stop Time Status Last Admin Pantoprazole Sodium (Protonix) 40 mg ONCE ONCE IV 08/20/24 16:00 08/20/24 16:01 DC 08/20/24 19:03 Sodium Chloride 1,000 ml @ 1,000 mls/hr Q1H ONCE IV 08/20/24 16:00 08/20/24 16:59 DC 08/20/24 19:03 [place] [id number] Ph: [phone] DIAGNOSTIC IMAGING Diagnostic Imaging Report : [id number] Signed PATIENT: CHEY BOLTON ACCT: [id number] UNIT: [id number] : 1970 LOC: ER ROOM / BED: / AGE / SEX: 54 / F ADM STATUS: REG ER SERVICE [id number] ORDERING PHYSICIAN: DAVIAN JACKSON DO PROCEDURE(s): ABPL - CT AB PEL WO CON-NO ORAL OR IV REASON: abd pain/gi bleed ORDER NUMBER(s): [id number], ACCESSION NUMBER(s): [id number] Exam: CT CT AB PEL WO CON-NO ORAL OR IV History: abd pain/gi bleed Comparison Study: None Technique: Multidetector spiral CT of the abdomen and pelvis was performed from lung bases to pubic symphysis. Imaging was performed without IV contrast. Axial, coronal and sagittal multiplanar reformats were obtained from the axial data set by the technologist. Radiation dose : Abdomen/Pelvis: CTDIvol 5 mGy, DLP 253 mGy*cm. Findings: Evaluation of solid organs is limited due to lack of intravenous contrast use. Lung Bases: No acute or significant lung base finding. Normal heart size. No pleural or pericardial effusion. Liver: The liver is normal in size. No focal lesions. Gallbladder and biliary Tree: Unremarkable Spleen: Unremarkable Pancreas: The pancreas is grossly normal in appearance. Adrenal Glands: Unremarkable Kidneys: Kidneys are grossly normal without calculi or hydronephrosis. Bladder: Grossly unremarkable for degree of distention. Bowel: The stomach is grossly normal in appearance. Small bowel and colon are normal in caliber and distribution. The appendix is not visualized; however, no secondary findings of acute appendicitis identified. Ascites: Absent Lymphadenopathy: No mesenteric, retroperitoneal or periportal lymphadenopathy. Abdominal wall and Mesentery: Mild mesenteric stranding which is nonspecific. Vasculature: The visualized abdominal aorta is normal in size and caliber. Evaluation of abdominal and pelvic vessels is limited due to lack of intravenous contrast. Pelvic Organs: Unremarkable Musculoskeletal: No aggressive focal bony lesions, acute fractures or dislocation. IMPRESSION: 1. No acute abdominal or pelvic findings. Mild mesenteric stranding which is nonspecific. Radiation optimization: All CT scans at this facility use at least one of these dose optimization techniques: Automated exposure control mA and/or kV adjustment per patient size (includes targeted exams where dose is matched to clinical indication) or iterative reconstruction. HS:Y ATED BY: JOHNNY ZAMBRANO MD DICTATED DATE/TIME: 08/20/24 163 SIGNED BY: JOHNNY ZAMBRANO MD SIGNED DATE/TIME: 08/20/24 163 CC: Time of 1ST Reevaluation: 16:12 Reevaluation 1ST: Unchanged Patient Education/Counseling: Diagnosis, Treatment Family Education/Counseling: Diagnosis, Treatment Comments Patient presented with the above HPI.---GI bleed---workup was initiated. patient was found with the above mentioned diagnosis. the following medications were ordered: please refer to order lists of meds and tests obtained by myself Dr. Jackson. Patient ED course and VS have been stabilized. Patient has been reassessed in the ED and remained in a stable condition. Pertinent incidental findings were discussed with the patient and/or family. Patient/family voices understanding and is agreeable with plan. Patient has been observed in the ED adequate length of time to insure improvement/stability. Escalation of care considered: Consideration of escalation to observation or admission Patient was ADMITTED to the medicine team for further evaluation and treatment of their presentation. All the reports of any imaging studies that were ordered by myself were reviewed by myself. Departure 1 Departure Time of Disposition: 17:32 Impression: Primary Impression: GI bleed Additional Impressions: Melena Hematochezia Generalized weakness Anemia Disposition: ADMITTED INPATIENT Admit to: Tele Condition: Guarded Discharged With: Self Critical Care Note Critical Care Time?: No I personally scribed for DAVIAN JACKSON DO ([email or web address]) on 08/20/24 at 15:58. Electronically submitted by Marysol Covarrubias ([email or web address]). I personally scribed for DAVIAN JACKSON DO ([email or web address]) on 08/20/24 at 18:09. Electronically submitted by Marysol Covarrubias ([email or web address]). DAVIAN JACKSON DO Aug 20, 2024 15:58
[2024-08-20 16:30] LABS: Basophils # (auto) 0 10 ^3/uL (0-0.2); Basophils % (auto) 0.2 % (0.0-2.0); Eosinophils # (auto) 0 10 ^3/uL (0-0.8); Eosinophils % (auto) 0.5 % (0.0-7.0); Hematocrit 30.1 % (36.0-46.0); Hemoglobin 9.9 g/dL (12.2-16.2); Lymphocytes % (auto) 24.4 % (10.0-50.0); Mean Corpuscular Hemoglobin 28.4 pg (28.0-32.0); Mean Corpuscular Volume 86.1 fL (80.0-100.0); Monocytes # (auto) 0.4 10 ^3/uL (0-1.3); Monocytes % (auto) 10.8 % (0.0-12.0); Neutrophils # (auto) 2.6 10 ^3/uL (1.6-8.6); Neutrophils % (auto) 64.1 % (37.0-80.0); Nucleated Red Blood Cells % 0.1 %; Platelet Count (auto) 170 10^3/uL (140-450); Red Cell Distribution Width 14.6 % (11.8-14.3); White Blood Cell 4.1 10^3/uL (4.4-10.8)
--- NOTE | 2024-08-20 16:34 | DVH ---
Exam: CT CT AB PEL WO CON-NO ORAL OR IV History: abd pain/gi bleed Comparison Study: None Technique: Multidetector spiral CT of the abdomen and pelvis was performed from lung bases to pubic symphysis. Imaging was performed without IV contrast. Axial, coronal and sagittal multiplanar reform ats were obtained from the axial data set by the technologist. Radiation dose : Abdomen/Pelvis: CTDIvol 5 mGy, DLP 253 mGy*cm. Findings: Evaluation of solid organs is limited due to lack of intravenous contrast use. Lung Bases: No acute or significant lung base finding. Normal heart size. No pleural or pericardial effusion. Liver: The liver is normal in size. No focal lesions. Gallbladder and biliary Tree: Unremarkable Spleen: Unremarkable Pancreas: The pancreas is grossly normal in appearance. Adrenal Glands: Unremarkable Kidneys: Kidneys are grossly normal without calculi or hydronephrosis. Bladder: Grossly unremarkable for degree of distention. Bowel: The stomach is grossly normal in appearance. Small bowel and colon are normal in caliber and d istribution. The appendix is not visualized; however, no secondary findings of acute appendicitis id entified. Ascites: Absent Lymphadenopathy: No mesenteric, retroperitoneal or periportal lymphadenopathy. Abdominal wall and Mesentery: Mild mesenteric stranding which is nonspecific. Vasculature: The visualized abdominal aorta is normal in size and caliber. Evaluation of abdominal a nd pelvic vessels is limited due to lack of intravenous contrast. Pelvic Organs: Unremarkable Musculoskeletal: No aggressive focal bony lesions, acute fractures or dislocation. IMPRESSION: 1. No acute abdominal or pelvic findings. Mild mesenteric stranding which is nonspecific. Radiation optimization: All CT scans at this facility use at least one of these dose optimization onel hniques: Automated exposure control mA and/or kV adjustment per patient size (includes targeted exams where dose is matched to clinical indication) or iterative reconstruction. HS:Y
[2024-08-20 16:53] LABS: Alanine Aminotransferase 12 U/L (7-40); Alkaline Phosphatase 55 U/L (46-116); Anion Gap 7 (5-15); Aspartate Aminotransferase 32 U/L (13-40); BUN/Creatinine Ratio 18.8 (10.0-20.0); Blood Urea Nitrogen 9 mg/dL (9-23); Carbon Dioxide 25 mmol/L (20-31); Glucose 82 mg/dL (74-106); INR 0.96 (0.9-1.15); Lipase 52 U/L (12-53); Potassium 3.6 mmol/L (3.5-5.1); Prothrombin Time 10.2 sec (9.3-11.8); Sodium 140 mmol/L (136-145)
[2024-08-20 16:54] LABS: Bilirubin, Total 0.3 mg/dL (0.2-1.0); Total Protein 7.4 g/dL (5.7-8.2)
[2024-08-20 16:56] LABS: Albumin 3.1 g/dL (3.2-4.8); Calcium 8.4 mg/dL (8.7-10.4); Chloride 108 mmol/L (98-107)
[2024-08-20 17:11] LABS: Urine Bacteria FEW /hpf (None Seen); Urine Blood Negative /uL (Negative); Urine Clarity Clear (Clear); Urine Color Light-Yellow (Yellow); Urine Protein, UAD Negative (Negative); Urine Specific Gravity 1.013 (1.001-1.035); Urine Squamous Epithelial Cell FEW /hpf (<5); Urine Urobilinogen Normal (Negative); Urine WBC 3 /HPF (0-5); Urine pH 6.5 (5.0-9.0)
[2024-08-20] MEDS: SODIUM CHLORIDE 0.9% 1,000 ML IV ONE ×2 (19:03→23:39)
[2024-08-20] MEDS: PANTOPRAZOLE 40 MG/10 ML VIAL INJ IV ONE (19:03)
[2024-08-20] MEDS ORDERED: ONDANSETRON HCL 4 MG/2 ML VIAL IV PRN (19:15)
[2024-08-20 19:39] LABS: Hemoglobin 8.3 g/dL (12.2-16.2)
--- NOTE | 2024-08-20 22:28 | DVHHP2 ---
History of Present Illness Reason for Visit: GI bleed History of Present Illness 54-year-old female presents for evaluation of GI bleed. Patient reports a two week history of noticing dark colored stools. She also reports a three day history of being constipated. Reports generalized weakness with mild dizziness. She also reports having a right lower quadrant pressure-like pain. Denies fever or chills. Denies any other acute complaints at the moment. Past Medical History Arthritis, anemia, celiac disease Past Surgical History Denies Family History Noncontributory Smoke: No ALCOHOL: none Drugs: None Lives: with Family Review of Systems Review of Systems Review of systems are currently negative otherwise addressed in HPI. Allergies: Coded Allergies: No Known Drug Allergy (Verified Allergy, Unknown, 04/07/24) Medications Current Medications Medications Dose Ordered Sig/Preet Route Start Time Stop Time Status Last Admin Dose Admin Pantoprazole Sodium 40 mg DAILY IV 08/21/24 10:00 Ondansetron HCl 4 mg Q4HP PRN IV 08/20/24 19:15 Exam Vital Signs Vital Signs Date Time Temp Pulse Resp B/P (MAP) Pulse Ox O2 Delivery O2 Flow Rate FiO2 08/20/24 19:54 99.4 83 18 110/57 (74) 100 99.4 08/20/24 19:05 Room Air Exam Gen: 54-year-old female in mild distress, cachectic Skin: Warm, dry, normal color and texture, no rash. HEENT: Normocephalic atraumatic, mucous membranes moist and pink. Neck: Cervical and supraclavicular nodes normal without enlargement, trachea is midline, thyroid gland is normal without masses. Pulmonary: Clear to auscultation and percussion bilaterally. Cardiac: Regular rate and rhythm. No murmur Abdomen: Soft, nontender, nondistended, bowel sounds present all 4 quadrants, no guarding, no rigidity, no organomegaly. Extremities: No cyanosis, clubbing, no edema Neuro: Cranial nerves II through XII grossly intact, normal affect and speech, no focal motor deficits. Labs/Xrays ORDERING PHYSICIAN: DAVIAN JACKSON DO PROCEDURE(s): ABPL - CT AB PEL WO CON-NO ORAL OR IV REASON: abd pain/gi bleed ORDER NUMBER(s): [id number], ACCESSION NUMBER(s): [id number] Exam: CT CT AB PEL WO CON-NO ORAL OR IV History: abd pain/gi bleed Comparison Study: None Technique: Multidetector spiral CT of the abdomen and pelvis was performed from lung bases to pubic symphysis. Imaging was performed without IV contrast. Axial, coronal and sagittal multiplanar reformats were obtained from the axial data set by the technologist. Radiation dose : Abdomen/Pelvis: CTDIvol 5 mGy, DLP 253 mGy*cm. Findings: Evaluation of solid organs is limited due to lack of intravenous contrast use. Lung Bases: No acute or significant lung base finding. Normal heart size. No pleural or pericardial effusion. Liver: The liver is normal in size. No focal lesions. Gallbladder and biliary Tree: Unremarkable Spleen: Unremarkable Pancreas: The pancreas is grossly normal in appearance. Adrenal Glands: Unremarkable Kidneys: Kidneys are grossly normal without calculi or hydronephrosis. Bladder: Grossly unremarkable for degree of distention. Bowel: The stomach is grossly normal in appearance. Small bowel and colon are normal in caliber and distribution. The appendix is not visualized; however, no secondary findings of acute appendicitis identified. Ascites: Absent Lymphadenopathy: No mesenteric, retroperitoneal or periportal lymphadenopathy. Abdominal wall and Mesentery: Mild mesenteric stranding which is nonspecific. Vasculature: The visualized abdominal aorta is normal in size and caliber. Evaluation of abdominal and pelvic vessels is limited due to lack of intravenous contrast. Pelvic Organs: Unremarkable Musculoskeletal: No aggressive focal bony lesions, acute fractures or dislocation. IMPRESSION: 1. No acute abdominal or pelvic findings. Mild mesenteric stranding which is nonspecific. Radiation optimization: All CT scans at this facility use at least one of these dose optimization techniques: Automated exposure control mA and/or kV adjustment per patient size (includes targeted exams where dose is matched to clinical indication) or iterative reconstruction. HS:Y ATED BY: JOHNNY ZAMBRANO MD Labs Test 08/20/24 19:22 08/20/24 17:14 08/20/24 16:13 08/20/24 16:04 Range/Units Hemoglobin 8.3 #L 12.2-16.2 g/dL Hematocrit 25.0 #L 36.0-46.0 % Troponin I High Sensitivity 7 </=34 ng/L White Blood Count 4.1 L 4.4-10.8 10^3/uL Red Blood Count 3.50 L 4.0-5.20 10^6/uL Mean Corpuscular Volume 86.1 80.0-100.0 fL Mean Corpuscular Hemoglobin 28.4 28.0-32.0 pg Mean Corpuscular Hemoglobin Concent 33.0 32.0-36.0 g/dL Red Cell Distribution Width 14.6 H 11.8-14.3 % Platelet Count 170 140-450 10^3/uL Mean Platelet Volume 9.1 6.9-10.8 fL Neutrophils (%) (Auto) 64.1 37.0-80.0 % Lymphocytes (%) (Auto) 24.4 10.0-50.0 % Monocytes (%) (Auto) 10.8 0.0-12.0 % Eosinophils (%) (Auto) 0.5 0.0-7.0 % Basophils (%) (Auto) 0.2 0.0-2.0 % Neutrophils # (Auto) 2.6 1.6-8.6 10 ^3/uL Lymphocytes # (Auto) 1.0 0.4-5.4 10 ^3/uL Monocytes # (Auto) 0.4 0-1.3 10 ^3/uL Eosinophils # (Auto) 0 0-0.8 10 ^3/uL Basophils # (Auto) 0 0-0.2 10 ^3/uL Nucleated Red Blood Cells 0.1 % Prothrombin Time 10.2 9.3-11.8 sec Prothrombin Time INR 0.96 0.9-1.15 Activated Partial Thromboplast Time 32.0 24.5-34.5 SEC Sodium Level 140 136-145 mmol/L Potassium Level 3.6 3.5-5.1 mmol/L Chloride Level 108 H 98-107 mmol/L Carbon Dioxide Level 25 20-31 mmol/L Anion Gap 7 5-15 Blood Urea Nitrogen 9 9-23 mg/dL Creatinine 0.48 L 0.550-1.02 mg/dL Glomerular Filtration Rate Calc 114 >90 mL/min BUN/Creatinine Ratio 18.8 10.0-20.0 Serum Glucose 82 74-106 mg/dL Lactic Acid Level 1.3 0.4-2.0 mmol/L Calcium Level 8.4 L 8.7-10.4 mg/dL Magnesium Level 2.0 1.6-2.6 mg/dL Total Bilirubin 0.3 0.2-1.0 mg/dL Aspartate Amino Transferase (AST) 32 13-40 U/L Alanine Aminotransferase (ALT) 12 7-40 U/L Alkaline Phosphatase 55 46-116 U/L Total Protein 7.4 5.7-8.2 g/dL Albumin 3.1 L 3.2-4.8 g/dL Lipase 52 12-53 U/L Urine Color Light-yellow Yellow Urine Clarity Clear Clear Urine pH 6.5 5.0-9.0 Urine Specific [place] 1.013 1.001-1.035 Urine Protein Negative Negative Urine Ketones Negative Negative Urine Blood Negative Negative /uL Urine Nitrite Negative Negative Urine Bilirubin Negative Negative Urine Urobilinogen Normal Negative mg/dL Urine Leukocyte Esterase 1+ Negative /uL Urine RBC 1 0 - 4 /hpf Urine Microscopic WBC 3 0-5 /HPF Urine Squamous Epithelial Cells Few <5 /hpf Urine Bacteria Few H None Seen /hpf Urine Glucose Normal Normal mg/dL Assessment/Plan Assessment/Plan Assessment GI bleed Mild anemia Urinary tract infection Cachexia Plan Admit the patient to [facility] to the hospitalist GI consultation Clear liquid diet Rocephin Maintenance IV fluids Continue treatment per orders. Plan discussed with: Patient My Orders Orders - DINORAH CORDERO Procedure Category Date Status Time Admit ADMIT 08/20/24 Transmitted 19:07 Stool Occult Blood LAB 08/20/24 Logged 19:08 * Gi Dvh Template Clerk CONS 08/20/24 Transmitted 19:08 Pantoprazole PHA 08/21/24 In Process (Protonix) 10:00 Sodium Chloride 0.9% PHA 08/20/24 In Process 19:15 Ondansetron Hcl PHA 08/20/24 In Process (Zofran) 19:15 Complete Blood Count LAB 08/21/24 Verified 04:00 Comprehensive LAB 08/21/24 Verified Metabolic Panel 04:00 Npo (Nothing By DIET 08/21/24 Transmitted Mouth) Diet Breakfast Condition: Stable WILLOW 08/20/24 In Process 19:08 Bedrest With Bathroom WILLOW 08/20/24 In Process Privileg 19:08 Date of Service: Aug 20, 2024 Billing Provider: DINORAH CORDERO Common Visit Codes: [id number] INP/OBS CARE (HIGH) DINORAH CORDERO AGACNP Aug 20, 2024 22:28
[2024-08-20 23:51] VITALS: BP 96/59; PULSE 78; RESP 16; TEMP 98.8; O2SAT 97
[2024-08-20 23:56] VITALS: BP 96/59; PULSE 78; RESP 16; TEMP 98.8; O2SAT 97
[2024-08-21] VITALS (7 sets, daily range): BP systolic 88–97; BP diastolic 49–60; PULSE 72–94; RESP 16; TEMP 97.9–98.8; O2SAT 98–99
[2024-08-21 06:36] LABS: Basophils # (auto) 0 10 ^3/uL (0-0.2); Basophils % (auto) 0.2 % (0.0-2.0); Eosinophils # (auto) 0 10 ^3/uL (0-0.8); Eosinophils % (auto) 0.5 % (0.0-7.0); Hematocrit 25.7 % (36.0-46.0); Hemoglobin 8.6 g/dL (12.2-16.2); Lymphocytes # (auto) 0.8 10 ^3/uL (0.4-5.4); Lymphocytes % (auto) 20.6 % (10.0-50.0); Mean Corpuscular Hemoglobin 28.6 pg (28.0-32.0); Mean Corpuscular Hgb Conc. 33.3 g/dL (32.0-36.0); Mean Corpuscular Volume 85.9 fL (80.0-100.0); Monocytes # (auto) 0.5 10 ^3/uL (0-1.3); Neutrophils # (auto) 2.5 10 ^3/uL (1.6-8.6); Neutrophils % (auto) 65.7 % (37.0-80.0); Platelet Count (auto) 144 10^3/uL (140-450); Red Cell Distribution Width 14.4 % (11.8-14.3); White Blood Cell 3.8 10^3/uL (4.4-10.8)
[2024-08-21 07:22] LABS: Anion Gap 8 (5-15); BUN/Creatinine Ratio 14.6 (10.0-20.0); Carbon Dioxide 23 mmol/L (20-31); Glucose 80 mg/dL (74-106); Sodium 143 mmol/L (136-145)
[2024-08-21 07:23] LABS: Aspartate Aminotransferase 27 U/L (13-40); Bilirubin, Total 0.3 mg/dL (0.2-1.0); Total Protein 6.4 g/dL (5.7-8.2)
[2024-08-21 07:32] LABS: Alanine Aminotransferase 9 U/L (7-40); Albumin 2.6 g/dL (3.2-4.8); Alkaline Phosphatase 46 U/L (46-116); Blood Urea Nitrogen 6 mg/dL (9-23); Calcium 8.1 mg/dL (8.7-10.4); Chloride 112 mmol/L (98-107); Potassium 3.1 mmol/L (3.5-5.1)
[2024-08-21] MEDS: PANTOPRAZOLE 40 MG/10 ML VIAL INJ IV SCH (10:25)
--- NOTE | 2024-08-21 11:59 | DVHPN2 ---
Subjective The patient is seen and examined at bedside. The patient is very tired Reviewed: Care Plan, H&P, Labs, Medications, Previous Orders, Radiology Changes from previous H/P or p: No Changes Objective Vitals Vital Signs Date Time Temp Pulse Resp B/P (MAP) Pulse Ox O2 Delivery O2 Flow Rate FiO2 08/21/24 09:01 98.7 80 16 89/49 (62) 98 98.7 08/21/24 08:25 Room Air* 0 21 Intake/Output Intake and Output 08/21/24 07:00 Intake Total 1200 ml Balance 1200 ml Intake Oral 200 ml IV Total 1000 ml General Appearance: Alert, Cooperative, No acute distress HEENT: Atraumatic, PERRLA, EOMI, Mucous membr. moist/pink Neck: Supple Lungs: Clear to auscultation, Normal air movement Cardiovascular: Regular rate, Normal S1, Normal S2, No murmurs, Gallops, Rubs Abdomen: Normal bowel sounds, Soft, No tenderness Neuro: Cranial nerves 3-12 NL Psych/Mental Status: Mental status NL Medications Current Medications Medications Dose Ordered Sig/Preet Route Start Time Stop Time Status Last Admin Dose Admin Pantoprazole Sodium 40 mg DAILY IV 08/21/24 10:00 08/21/24 10:25 40 MG Ondansetron HCl 4 mg Q4HP PRN IV 08/20/24 19:15 Laboratory Results Laboratory Tests 08/21/24 05:52 Chemistry Test 08/20/24 16:13 08/21/24 05:52 Albumin 3.1 g/dL (3.2-4.8) L 2.6 g/dL (3.2-4.8) L Calcium Level 8.4 mg/dL (8.7-10.4) L 8.1 mg/dL (8.7-10.4) L Magnesium Level 2.0 mg/dL (1.6-2.6) Total Protein 7.4 g/dL (5.7-8.2) 6.4 g/dL (5.7-8.2) Coagulation Test 08/20/24 16:13 Prothrombin Time 10.2 sec (9.3-11.8) Prothrombin Time INR 0.96 (0.9-1.15) Activated Partial Thromboplast Time 32.0 SEC (24.5-34.5) Lipid panel Test 08/20/24 16:13 Lipase 52 U/L (12-53) LFT Test 08/20/24 16:13 08/21/24 05:52 Alanine Aminotransferase (ALT) 12 U/L (7-40) 9 U/L (7-40) Alkaline Phosphatase 55 U/L (46-116) 46 U/L (46-116) Aspartate Amino Transferase (AST) 32 U/L (13-40) 27 U/L (13-40) Total Bilirubin 0.3 mg/dL (0.2-1.0) 0.3 mg/dL (0.2-1.0) Urinalysis Test 08/20/24 16:04 Urine Color Light-yellow (Yellow) Urine Clarity Clear (Clear) Urine pH 6.5 (5.0-9.0) Urine Specific [place] 1.013 (1.001-1.035) Urine Protein Negative (Negative) Urine Ketones Negative (Negative) Urine Blood Negative /uL (Negative) Urine Nitrite Negative (Negative) Urine Bilirubin Negative (Negative) Urine Urobilinogen Normal mg/dL (Negative) Urine Leukocyte Esterase 1+ /uL (Negative) Urine RBC 1 /hpf (0 - 4) Urine Microscopic WBC 3 /HPF (0-5) Urine Squamous Epithelial Cells Few /hpf (<5) Urine Bacteria Few /hpf (None Seen) H Urine Glucose Normal mg/dL (Normal) Labs and/or images reviewed: Labs reviewed by me Assessment/Plan Assessment/Plan GI bleed Mild anemia Urinary tract infection Cachexia Hypokalemia Plan: Continuing current management. Continuing with IV fluid. We will monitor hemoglobin and transfused as needed when hemoglobin less than seven. Continuing IV antibiotic. We will replace potassium with KCl 40 mEq x 1. Waiting for GI specialist to see the patient. This medical document was created using an electronic medical record system with [email or web address] direct computerized dictation system. Although this document has been carefully reviewed, there may still be some phonetic and typographical errors. These areas are purely typographical due to imperfections of the software programs, and do not reflect any compromise in the patient's medical care. Plan discussed with: Patient Date of Service: Aug 21, 2024 Billing Provider: LYNN VANN MD Common Visit Codes: [id number] INP/OBS CARE(HIGH) LYNN VANN MD Aug 21, 2024 11:59
[2024-08-21] MEDS: POTASSIUM CHL 20MEQ/100ML 100 ML IV SCH (12:58)
[2024-08-22] VITALS (9 sets, daily range): BP systolic 86–116; BP diastolic 51–74; PULSE 73–85; RESP 15–20; TEMP 97.9–98.9; O2SAT 98–100
[2024-08-22] MEDS ORDERED: PROPOFOL 10 MG/ML 100ML BOTTLE IV ONE (11:24)
--- NOTE | 2024-08-22 11:48 | DVHPN2 ---
Subjective The patient is seen and examined at bedside. The patient is very tired Reviewed: Care Plan, H&P, Labs, Medications, Previous Orders, Radiology Changes from previous H/P or p: No Changes Objective Vitals Vital Signs Date Time Temp Pulse Resp B/P (MAP) Pulse Ox O2 Delivery O2 Flow Rate FiO2 08/22/24 09:00 98.9 78 16 90/51 (64) 98 98.9 08/21/24 20:00 Room Air* 0 21 Intake/Output Intake and Output 08/22/24 07:00 Intake Total 312.5 ml Balance 312.5 ml Intake Oral 0 ml IV Total 312.5 ml # Voids 2 General Appearance: Alert, Cooperative, No acute distress HEENT: Atraumatic, PERRLA, EOMI, Mucous membr. moist/pink Neck: Supple Lungs: Clear to auscultation, Normal air movement Cardiovascular: Regular rate, Normal S1, Normal S2, No murmurs, Gallops, Rubs Abdomen: Normal bowel sounds, Soft, No tenderness Neuro: Cranial nerves 3-12 NL Psych/Mental Status: Mental status NL Medications Current Medications Medications Dose Ordered Sig/Preet Route Start Time Stop Time Status Last Admin Dose Admin Pantoprazole Sodium 40 mg DAILY IV 08/21/24 10:00 08/22/24 11:22 40 MG Ondansetron HCl 4 mg Q4HP PRN IV 08/20/24 19:15 Laboratory Results Laboratory Tests 08/21/24 05:52 Urinalysis Test 08/20/24 16:04 Urine Color Light-yellow (Yellow) Urine Clarity Clear (Clear) Urine pH 6.5 (5.0-9.0) Urine Specific [place] 1.013 (1.001-1.035) Urine Protein Negative (Negative) Urine Ketones Negative (Negative) Urine Blood Negative /uL (Negative) Urine Nitrite Negative (Negative) Urine Bilirubin Negative (Negative) Urine Urobilinogen Normal mg/dL (Negative) Urine Leukocyte Esterase 1+ /uL (Negative) Urine RBC 1 /hpf (0 - 4) Urine Microscopic WBC 3 /HPF (0-5) Urine Squamous Epithelial Cells Few /hpf (<5) Urine Bacteria Few /hpf (None Seen) H Urine Glucose Normal mg/dL (Normal) Labs and/or images reviewed: Labs reviewed by me Assessment/Plan Assessment/Plan GI bleed Mild anemia Urinary tract infection Cachexia Hypokalemia Plan: Continuing current management. Continuing with IV fluid. We will monitor hemoglobin and transfused as needed when hemoglobin less than seven. Continuing IV antibiotic. We will replace potassium with KCl 40 mEq x 1. EGD today. This medical document was created using an electronic medical record system with [employer] direct computerized dictation system. Although this document has been carefully reviewed, there may still be some phonetic and typographical errors. These areas are purely typographical due to imperfections of the software programs, and do not reflect any compromise in the patient's medical care. Plan discussed with: Patient Date of Service: Aug 22, 2024 Billing Provider: LYNN VANN MD Common Visit Codes: [id number] INP/OBS CARE(HIGH) LYNN VANN MD Aug 22, 2024 11:48
[2024-08-22] MEDS: D5W/SOD CHL 0.45% 1,000 ML IV ONE (12:40)
--- NOTE | 2024-08-22 14:19 | DVHINCON2 ---
GI Consult Consult Note GI consult note Date of Consultation: 08/22/2024 Chief Complaint: GI bleed Referring Physician: Dr. Damon H&P: 54-year-old female presented to ER for GI bleed History by patient and daughter Georgia by phone Patient has black stool on and off since November of last year, but more Persistent everyday black stool for one month patient has bowel movements about 2-3 times per week No nausea or vomiting. No hematemesis. Patient complains of abdominal discomfort which improves after bowel movement Patient has weight loss of 50 lb in the last eight months No EGD or colonoscopy in past Past Medical History: Arthritis, anemia, celiac disease Past Surgical History: Denies Social History: NO smoking, drinking ETOH and use of illegal drugs. Family History: Noncontributory Review of Systems: Constitutional: no fever, chill, weight loss HEENT: no eye pain, no hearing loss, no oral lesion, no scleral icterus Heart: no chest pain, no chest pressure Lung: no cough, no dyspnea with exertion Abdomen: see HPI Physical exam: General: NAD, AAOX3 Chest: lung worthy clear to auscultation Heart: RRR, no murmur Abdomen: non-distended, no tenderness to palpation, +BS Labs: Urinalysis Test 08/20/24 16:04 Urine Color Light-yellow (Yellow) Urine Clarity Clear (Clear) Urine pH 6.5 (5.0-9.0) Urine Specific [place] 1.013 (1.001-1.035) Urine Protein Negative (Negative) Urine Ketones Negative (Negative) Urine Blood Negative /uL (Negative) Urine Nitrite Negative (Negative) Urine Bilirubin Negative (Negative) Urine Urobilinogen Normal mg/dL (Negative) Urine Leukocyte Esterase 1+ /uL (Negative) Urine RBC 1 /hpf (0 - 4) Urine Microscopic WBC 3 /HPF (0-5) Urine Squamous Epithelial Cells Few /hpf (<5) Urine Bacteria Few /hpf (None Seen) H Urine Glucose Normal mg/dL (Normal) Imaging: CT abdomen pelvis IMPRESSION: 1. No acute abdominal or pelvic findings. Mild mesenteric stranding which is nonspecific. Assessment: GI bleed Anemia Weight loss Plan: Discussed with Dr. Rivera - Pt will be scheduled for an EGD today 08/22/2024. Pt was informed of the risks (bleeding, infection, perforation, reaction to sedation medications and cardiopulmonary arrest) and benefit and is agreeable to undergo the procedures. Discussed plan with patient, daughter by phone, and RN Thank you for this consult Date of Service: Aug 22, 2024 Billing Provider: ANG GARCIA Common Visit Codes: CONSULT ONLY Consultation Codes: [id number] CONSULT <60MIN ANG GARCIA Aug 22, 2024 14:19
[2024-08-22] MEDS ORDERED: fentaNYL CITRATE 100 MCG/2 ML VL ONE (14:27)
--- NOTE | 2024-08-22 14:47 | DVHOP2 ---
Operative Report DATE OF OPERATION: 08/22/24 PROCEDURE: Upper Endoscopy with biopsy. PREOPERATIVE INDICATION: The patient is a 54 -year-old female undergoing endoscopy for history of melena POSTOPERATIVE DIAGNOSES: 1. Mild gastritis with some hyperemia erythema ; no fresh or old blood in the stomach 2. There was a 2-3 mm benign-appearing yellowish whitish patch in the antrum that was removed completely via cold biopsy forceps 3. Slightly irregular squamocolumnar junction otherwise normal examination up to the 2nd and 3rd part of the duodenum PROCEDURE PERFORMED BY: Magalys Rivera GI NURSE: Ananda SCOPE: Olympus videoendoscope. ASA CLASS: 3. PREOPERATIVE MEDICATIONS: Mac Dr. Marisol helton PROCEDURE IN DETAIL: After obtaining an informed consent, the patient was placed on left lateral decubitus position. The patient was then sedated with the above medications. A bite block was placed between her teeth. The endoscope was then passed through the oropharynx, into the esophagus, and through the stomach and pylorus up to the second and third part of the duodenum. The endoscope was then withdrawn. The 2nd and 3rd part of the duodenum were normal and the duodenal bulb showed mild duodenitis The pre-pyloric area and antrum and body showed mild gastritis. Duodenal and gastric biopsies were obtained In the antrum the patient had a 2-3 mm benign-appearing yellowish whitish patch this was removed completely via cold biopsy forceps On retroflexion the fundus cardia and angularis were normal. The endoscope was then withdrawn into the distal esophagus Patient had a slightly irregular squamocolumnar junction no significant hiatal hernia no esophagitis. The remaining distal and proximal esophagus and oropharynx were unremarkable The patient tolerated the procedure well without difficulty. COMPLICATIONS : None SPECIMENS: Duodenal biopsies Antral yellowish whitish patch Gastric body biopsies DISPOSITION: Transfer back to the floor Stable PLAN: 1. Await for biopsy result 2. Will place pt on Protonix 40 mg p.o. daily 3. Resume GI soft diet advance as tolerated 4. Ooutpt elective colonoscopy 5. Patient needs further workup and review of a rheumatological condition MAGALYS RIVERA MD Aug 22, 2024 14:47
[2024-08-23 01:00] VITALS: BP 102/63; PULSE 73; RESP 16; TEMP 98.6; O2SAT 99
[2024-08-23 05:00] VITALS: BP 107/63; PULSE 84; RESP 19; TEMP 98.9; O2SAT 98
[2024-08-23 06:53] LABS: Folate (Folic Acid) 10.7 ng/mL (>5.38)
[2024-08-23 07:37] LABS: Erythrocyte Sedimentation Rate 83 mm/hr (0-20)
[2024-08-23 08:30] VITALS: BP 90/60; PULSE 74; RESP 18; TEMP 98; O2SAT 98
--- NOTE | 2024-08-23 10:58 | DVHPN2 ---
Progress Note Date Seen: Aug 23, 2024 Resident Creating Document: DEXTER HERZOG RESIDENT Medical Necessity Reason Pt with a Central, PICC or Fol: No Subjective Review of Systems 54-year-old female presented to ER for GI bleed History by patient and daughter Georgia by phone Patient has black stool on and off since November of last year, but more Persistent everyday black stool for one month patient has bowel movements about 2-3 times per week No nausea or vomiting. No hematemesis. Patient complains of abdominal discomfort which improves after bowel movement Patient has weight loss of 50 lb in the last eight months No EGD or colonoscopy in past Past Medical History: Arthritis, anemia, celiac disease Past Surgical History: Denies Social History: NO smoking, drinking ETOH and use of illegal drugs. Family History: Noncontributory Patient seen and examined at bedside. Had a bowel movement today. Colonoscopy scheduled for tomorrow. Follow up with a small bowel series. Objective vital signs Vital Sign Date Time Temp Pulse Resp B/P (MAP) Pulse Ox O2 Delivery O2 Flow Rate FiO2 08/23/24 08:30 98.0 74 18 90/60 (70) 98 98.0 08/22/24 20:00 Room Air* 0 21 Total Intake and Output 08/22/24 08/22/24 08/23/24 15:00 23:00 07:00 Intake Total 100 ml 0 ml 900 ml Balance 100 ml 0 ml 900 ml medications Current Medications Medications Dose Ordered Sig/Preet Route Start Time Stop Time Status Last Admin Dose Admin Pantoprazole Sodium 40 mg DAILY IV 08/21/24 10:00 08/23/24 09:45 40 MG Ondansetron HCl 4 mg Q4HP PRN IV 08/20/24 19:15 Examination Patient lying in bed, in no acute distress General: Well-built, afebrile, palor, mucosae are moist Cardiovascular: Regular S1 and S2. No murmurs, gallops or rubs. No JVD elevation. No pedal edema Respiratory: Normal B/L air entry on room air. Clear lung sounds on auscultation Abdomen: Soft, nontender, nondistended, normoactive bowel sounds, no rebound tenderness, no organomegaly, no masses Genitourinary: Deferred MSK/skin: Mobilizes 4 limbs. Skin is dry and warm Neurological: No motor, no sensitive deficits, normal speech. Pupils are isocoric and reactive. Psych/Mental Status: A/Ox3 laboratory and microbiology Laboratory Tests 08/21/24 05:52 Test 08/21/24 05:52 Range/Units Serum Glucose 80 74-106 mg/dL Microbiology Date/Time Source Procedure Growth Status 08/20/24 16:04 Voided Urine Urine Culture - Final Complete Labs and/or images reviewed: Labs reviewed by me, Image(s) reviewed by me Problem List/Assessment/Plan Problem List/Assessment/Plan ? Celiac disease GI bleeding secondary to mild gastritis Anemia, likely normocytic Leukopenia Hypokalemia Asymptomatic bacteriuria Unintentional weight loss EGD completed 08/22 shows mild gastritis with some hyperemia and erythema: 2-3 mm benign appearing whitish yellowish patch in the antrum, slightly irregular squamocolumnar junction. CT abdomen 08/20 was negative for acute pathology Plan: Patient will be scheduled for colonoscopy 08/24. Clear liquid diet for now. Continue bowel prep. Continue Protonix 40 mg p.o. daily. Follow up with [facility], IgA tTG and total IgA, iron profile Follow up with small-bowel series Outpatient follow up with GI within 2-4 weeks to discuss further management and biopsy results. Plan discussed with patient in which all questions have been answered Case discussed with nurse and Dr. Rivera Plan discussed with: Patient DEXTER HERZOG RESIDENT Aug 23, 2024 10:58
[2024-08-23] MEDS ORDERED: PANT40TA2 PO (11:35)
--- NOTE | 2024-08-23 11:40 | DVH ---
Procedure: XY SMALL BOWEL SERIES-W GASTROGRA Exam Date: 08/23/2024 10:01 AM Reason for study/Clinical History: HX COELIAC SPURE Comparison Study: None available at time of dictation. Technique: Single contrast small bowel series performed. Findings: Initial advance scout view of the abdomen and pelvis appears demonstrates no acute process. Contrast is identified within the colon by 45 min . This represents a normal small bowel transit elizabeth e. Small bowel loops are normal in size. Normal mucosal pattern. No evidence of small bowel obstructi on, stricture, or mucosal abnormality. The terminal ileum is well visualized and is unremarkable. IMPRESSION: Normal small bowel series. END IMPRESSION:
--- NOTE | 2024-08-23 12:14 | DVHPN2 ---
Subjective The patient is seen and examined at bedside. The patient is very tired Reviewed: Care Plan, H&P, Labs, Medications, Previous Orders, Radiology Changes from previous H/P or p: No Changes Objective Vitals Vital Signs Date Time Temp Pulse Resp B/P (MAP) Pulse Ox O2 Delivery O2 Flow Rate FiO2 08/23/24 08:30 98.0 74 18 90/60 (70) 98 98.0 08/22/24 20:00 Room Air* 0 21 Intake/Output Intake and Output 08/23/24 07:00 Intake Total 1000 ml Balance 1000 ml Intake Oral 900 ml IV Total 100 ml # Voids 5 General Appearance: Alert, Cooperative, No acute distress HEENT: Atraumatic, PERRLA, EOMI, Mucous membr. moist/pink Neck: Supple Lungs: Clear to auscultation, Normal air movement Cardiovascular: Regular rate, Normal S1, Normal S2, No murmurs, Gallops, Rubs Abdomen: Normal bowel sounds, Soft, No tenderness Neuro: Cranial nerves 3-12 NL Psych/Mental Status: Mental status NL Medications Current Medications Medications Dose Ordered Sig/Preet Route Start Time Stop Time Status Last Admin Dose Admin Pantoprazole Sodium 40 mg DAILY IV 08/21/24 10:00 08/23/24 09:45 40 MG Ondansetron HCl 4 mg Q4HP PRN IV 08/20/24 19:15 Laboratory Results Laboratory Tests 08/21/24 05:52 Urinalysis Test 08/20/24 16:04 Urine Color Light-yellow (Yellow) Urine Clarity Clear (Clear) Urine pH 6.5 (5.0-9.0) Urine Specific [place] 1.013 (1.001-1.035) Urine Protein Negative (Negative) Urine Ketones Negative (Negative) Urine Blood Negative /uL (Negative) Urine Nitrite Negative (Negative) Urine Bilirubin Negative (Negative) Urine Urobilinogen Normal mg/dL (Negative) Urine Leukocyte Esterase 1+ /uL (Negative) Urine RBC 1 /hpf (0 - 4) Urine Microscopic WBC 3 /HPF (0-5) Urine Squamous Epithelial Cells Few /hpf (<5) Urine Bacteria Few /hpf (None Seen) H Urine Glucose Normal mg/dL (Normal) Microbiology Microbiology Date/Time Source Procedure Growth Status 08/20/24 16:04 Voided Urine Urine Culture - Final Complete Labs and/or images reviewed: Labs reviewed by me Assessment/Plan Assessment/Plan GI bleed Mild anemia Urinary tract infection Cachexia Hypokalemia Plan: Continuing current management. Continuing with IV fluid. We will monitor hemoglobin and transfused as needed when hemoglobin less than seven. Continuing IV antibiotic. We will replace potassium with KCl 40 mEq x 1. EGD done showed: Mild gastritis with some hyperemia erythema ; no fresh or old blood in the stomach. There was a 2-3 mm benign-appearing yellowish whitish patch in the antrum that was removed completely via cold biopsy forceps. Slightly irregular squamocolumnar junction otherwise normal examination up to the 2nd and 3rd part of the duodenum. Waiting for colonoscopy. This medical document was created using an electronic medical record system with [employer] direct computerized dictation system. Although this document has been carefully reviewed, there may still be some phonetic and typographical errors. These areas are purely typographical due to imperfections of the software programs, and do not reflect any compromise in the patient's medical care. Plan discussed with: Patient Date of Service: Aug 23, 2024 Billing Provider: LYNN VANN MD Common Visit Codes: [id number] INP/OBS CARE(HIGH) LYNN VANN MD Aug 23, 2024 12:14
[2024-08-23] MEDS: GOLYTELY 4L KIT PO ONE (12:18)
[2024-08-23 12:37] LABS: % Iron Saturation 13.7 % (15-50)
[2024-08-23 16:51] VITALS: BP 107/73; PULSE 74; RESP 18; TEMP 98; O2SAT 99
[2024-08-23 20:00] VITALS: PULSE 76; RESP 18; O2SAT 99
[2024-08-23 21:00] VITALS: BP 112/59; PULSE 76; RESP 18; TEMP 98; O2SAT 99
[2024-08-24] VITALS (7 sets, daily range): BP systolic 98–119; BP diastolic 64–75; PULSE 42–82; RESP 16–18; TEMP 97.5–98.2; O2SAT 93–100
--- NOTE | 2024-08-24 06:10 | ECG ---
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
[2024-08-24] MEDS: MAGNESIUM CITRATE SOLUTION 300 ML BTL PO ONE (06:13)
[2024-08-24] MEDS: GOLYTELY 4L KIT PO ONE (06:14)
--- NOTE | 2024-08-24 07:25 | DVH ---
EXAM: XR Chest, 1 View CLINICAL INDICATION: per protocol for procedure TECHNIQUE: Frontal view of the chest. COMPARISON: None FINDINGS: LUNGS AND PLEURAL SPACES: Unremarkable. No consolidation. No pneumothorax. HEART: Unremarkable. No cardiomegaly. MEDIASTINUM: Unremarkable. Normal mediastinal contour. BONES/JOINTS: Unremarkable. No acute fracture. OTHER FINDINGS: . None. . . .. IMPRESSION: No acute cardiopulmonary process.
[2024-08-24] MEDS: METOCLOPRAMIDE HCL 5MG/ml INJ 2ml VIAL IV ONE (14:00)
[2024-08-24] MEDS ORDERED: MORPHINE SULFATE INJ 2 MG/ml SYRG IV PRN (14:00)
[2024-08-24] MEDS ORDERED: HYDROmorphone HCL 2 MG/ML VL/or syr IV PRN ×2 (14:00)
[2024-08-24 14:06] LABS: Anti-Nuclear Antibody Direct Positive (Negative)
[2024-08-24] MEDS ORDERED: KETAMINE 50mg/ML 1ml syringe ONE (14:06)
[2024-08-24] MEDS ORDERED: MIDAZOLAM HCL 2MG/2ML 2ml VIAL (1mg/ml) ONE (14:07)
[2024-08-24] MEDS ORDERED: LIDOCAINE 1% INJ PF 5ML AMP ONE (14:07)
[2024-08-24] MEDS ORDERED: DexAMETHasone SOD PHOS 10MG/1ML VIAL INJ ONE (14:07)
[2024-08-24] MEDS ORDERED: SODIUM CHLORIDE LOCK 10 ML ONE (14:07)
[2024-08-24] MEDS ORDERED: fentaNYL CITRATE 100 MCG/2 ML VL ONE (14:07)
[2024-08-24] MEDS ORDERED: ONDANSETRON HCL 4 MG/2 ML VIAL ONE (14:07)
[2024-08-24] MEDS ORDERED: PROPOFOL 10 MG/ML 20 ML IV ONE (14:07)
--- NOTE | 2024-08-24 15:00 | DVHOP2 ---
Operative Report DATE OF OPERATION: 08/24/24 PROCEDURE: Diagnostic Colonoscopy. PREOPERATIVE INDICATION: The patient is a 54 -year-old female undergoing colonoscopy for screening and evaluation of anemia and weight loss POSTOPERATIVE DIAGNOSES: 1. Trace internal hemorrhoids otherwise completely normal colonoscopy examina tion up to the terminal ileum PROCEDURE PERFORMED BY: Magalys Rivera M.D. SCOPE: Olympus videocolonoscope. ASA CLASS: 3. PREOPERATIVE MEDICATIONS: Dr. Milind Camara PROCEDURE IN DETAIL: After obtaining an informed consent, the patient was placed on left lateral decubitus position. She was then sedated with the above medications. A rectal examination was performed that was normal. The colonoscope was then passed through the anus into the rectosigmoid and through the descending, transverse, and ascending colon up to the cecum with visualization of the appendiceal orifice, base of the cecum and the ileocecal valve. The colonoscope was then withdrawn. The distal 5-10 cm of the terminal ileum were normal Patient had mild tortuosity of the colon especially in the splenic flexure area There was no colitis and no clear-cut diverticular disease. No polyps or masses were seen. On retroflexion and straight on view she had trace internal hemorrhoids. The patient tolerated the procedure well without difficulty. WITHDRAWAL TIME: 6 minutes QUALITY OF THE PREP: Veblen Bowel Prep score: 9. COMPLICATIONS : None SPECIMENS: None DISPOSITION: Transfer back to the floor Stable PLAN: 1. Repeat colonoscopy in 10 years 2. Resume GI soft diet advance as tolerated 3. Outpatient follow up with GI Services for ongoing management 4. Patient was advised to stay on a gluten free diet MAGALYS RIVERA MD Aug 24, 2024 15:00
--- NOTE | 2024-08-24 20:34 | DVHPN2 ---
Subjective in bed resting and hungry Reviewed: Care Plan, H&P, Labs, Medications, Previous Orders, Radiology Changes from previous H/P or p: No Changes Objective Vitals Vital Signs Date Time Temp Pulse Resp B/P (MAP) Pulse Ox O2 Delivery O2 Flow Rate FiO2 08/24/24 16:39 97.5 67 18 119/75 (90) 100 97.5 08/24/24 14:57 Room Air 0 100 Intake/Output Intake and Output 08/24/24 05:00 Intake Total 940 ml Output Total 1000 ml Balance -60 ml Intake Oral 940 ml Output Urine Total 1000 ml # Voids 3 # Bowel Movements 2 General Appearance: Alert, Cooperative, No acute distress HEENT: Atraumatic, PERRLA, EOMI, Mucous membr. moist/pink Neck: Supple Lungs: Clear to auscultation, Normal air movement Cardiovascular: Regular rate, Normal S1, Normal S2, No murmurs, Gallops, Rubs Abdomen: Normal bowel sounds, Soft, No tenderness Neuro: Cranial nerves 3-12 NL Psych/Mental Status: Mental status NL Medications Current Medications Medications Dose Ordered Sig/Preet Route Start Time Stop Time Status Last Admin Dose Admin Pantoprazole Sodium 40 mg DAILY IV 08/21/24 10:00 08/24/24 18:05 40 MG Ondansetron HCl 4 mg Q4HP PRN IV 08/20/24 19:15 Laboratory Results Laboratory Tests 08/21/24 05:52 Urinalysis Test 08/20/24 16:04 Urine Color Light-yellow (Yellow) Urine Clarity Clear (Clear) Urine pH 6.5 (5.0-9.0) Urine Specific [place] 1.013 (1.001-1.035) Urine Protein Negative (Negative) Urine Ketones Negative (Negative) Urine Blood Negative /uL (Negative) Urine Nitrite Negative (Negative) Urine Bilirubin Negative (Negative) Urine Urobilinogen Normal mg/dL (Negative) Urine Leukocyte Esterase 1+ /uL (Negative) Urine RBC 1 /hpf (0 - 4) Urine Microscopic WBC 3 /HPF (0-5) Urine Squamous Epithelial Cells Few /hpf (<5) Urine Bacteria Few /hpf (None Seen) H Urine Glucose Normal mg/dL (Normal) Microbiology Microbiology Date/Time Source Procedure Growth Status 08/20/24 16:04 Voided Urine Urine Culture - Final Complete Assessment/Plan Assessment/Plan GI bleed Mild anemia Urinary tract infection Cachexia Hypokalemia Plan: Continuing current management. Continuing with IV fluid. We will monitor hemoglobin and transfused as needed when hemoglobin less than seven. Continuing IV antibiotic. We will replace potassium with KCl 40 mEq x 1. EGD done showed: Mild gastritis with some hyperemia erythema ; no fresh or old blood in the stomach. There was a 2-3 mm benign-appearing yellowish whitish patch in the antrum that was removed completely via cold biopsy forceps. Slightly irregular squamocolumnar junction otherwise normal examination up to the 2nd and 3rd part of the duodenum. Waiting for colonoscopy. Plan discussed with: Patient Date of Service: Aug 24, 2024 Billing Provider: ROLAND FRANCO MD Common Visit Codes: [id number] INP/OBS CARE(HIGH) ROLAND FRANCO MD Aug 24, 2024 20:34
[2024-08-25 01:00] VITALS: BP 129/70; PULSE 71; RESP 18; TEMP 96.7; O2SAT 99
[2024-08-25 05:00] VITALS: BP 120/62; PULSE 65; RESP 16; TEMP 97.2; O2SAT 99
[2024-08-25] MEDS: GASTROGRAFIN 120 ML SOL ONE (07:53)
[2024-08-25 08:00] VITALS: PULSE 68; RESP 17; O2SAT 96
[2024-08-25 09:00] VITALS: BP 97/56; PULSE 76; RESP 15; TEMP 98.4; O2SAT 98
[2024-08-25 12:38] VITALS: BP 96/60; PULSE 70; RESP 16; TEMP 97.5; O2SAT 100
[2024-08-25 13:00] VITALS: BP 96/60; PULSE 70; RESP 16; TEMP 97.5; O2SAT 100
--- NOTE | 2024-08-25 21:26 | DVHPN2 ---
Progress Note - Dictate Date Seen: Aug 25, 2024 (Late entry Patient seen at 1:00 p.m.) Medical Necessity Reason Pt with a Central, PICC or Fol: No Subjective Patient seen prior to discharge She was in good spirits and denies any significant symptoms Family at bedside EGD and colon Report discussed with patient and family OLY is positive; patient has underlying rheumatological disease Celiac test is pending Anemia of chronic disease Vitamin B12 and serum folate are normal Sed rate is high to 83 vital signs Vital Sign Date Time Temp Pulse Resp B/P (MAP) Pulse Ox O2 Delivery O2 Flow Rate FiO2 08/25/24 13:00 97.5 70 16 96/60 (72) 100 97.5 08/25/24 08:00 Room Air* 0 21 Total Intake and Output 08/24/24 08/24/24 08/25/24 15:00 23:00 07:00 Intake Total 25 ml 900 ml 220 ml Output Total 800 ml Balance 25 ml 900 ml -580 ml objective General: NAD, AAOX3; thin emaciated lady Chest: lung worthy clear to auscultation Heart: RRR, no murmur Abdomen: non-distended, no tenderness to palpation, +BS Extremities patient has superficial sores over her knuckles and swelling of her fingers laboratory and microbiology Laboratory Tests 08/21/24 05:52 Test 08/21/24 05:52 Range/Units Serum Glucose 80 74-106 mg/dL Problems(with codes): (1) GI bleed (2) Generalized weakness (3) Anemia (4) Melena (5) Fibromyalgia Prognosis Plan Discharge planning is in progress Advance diet as tolerated Patient is scheduled for outpatient follow up with me in September She was advised to be on a gluten free diet until then Plan discussed with: Patient, Daughter MAGALYS HUSAIN MD Aug 25, 2024 21:26
[2024-08-26 17:06] LABS: t-Transglutaminase (tTG) IgA <2 U/mL (0-3); t-Transglutaminase (tTG) IgG 3 U/mL (0-5)
== END 2024-08-25 13:59 | disposition home or self-care (01) | DRG 241 ==
LOC: ER 15:32 → OVERFLOW 19:07 → EAST 19:08
PROVIDERS: ADMIT Nurse Practitioner; ATTEND Hospitalist
PROC: 0DB68ZX Excision of Stomach, Via Natural or Artificial Opening Endoscopic, Diagnostic (ICD-10-PCS; 2024-08-22)
PROC: 0DB98ZX Excision of Duodenum, Via Natural or Artificial Opening Endoscopic, Diagnostic (ICD-10-PCS; principal; 2024-08-22 14:28)
PROC: 0DJD8ZZ Inspection of Lower Intestinal Tract, Via Natural or Artificial Opening Endoscopic (ICD-10-PCS; 2024-08-24)
DX: K29.81 Duodenitis with bleeding (principal); R64 Cachexia; E43 Unspecified severe protein-calorie malnutrition; D63.8 Anemia in other chronic diseases classified elsewhere; K64.8 Other hemorrhoids; K29.71 Gastritis, unspecified, with bleeding; N39.0 Urinary tract infection, site not specified; E87.6 Hypokalemia; Z68.1 Body mass index [BMI] 19.9 or less, adult; Z79.899 Other long term (current) drug therapy
CPT/HCPCS: 36415; 71045; 74176; 74250; 80053; 81001; 82607; 82746; 83540; 83550; 83605; 83690; 83735; 84484; 85014; 85018; 85025; 85610; 85652; 85730; 86038; 86850; 86900; 86901; 87086; 93005; G0378; J1100; J2250; J2405; J2470; J2704; J3480

== ENCOUNTER 2024-11-15 09:40 | Inpatient (IN) | payer MEDICAID ==
[2024-11-15] VITALS (9 sets, daily range): BP systolic 86–105; BP diastolic 53–68; PULSE 18–90; RESP 12–18; TEMP 97.3–98.3; O2SAT 92–100
[~2024-11-15] VITALS: Ht 152.4 cm; Wt 42.5 kg
[~2024-11-15 09:40] MED LIST changes: -FAMO20TA10 PO; +PANT40TA2 PO
[2024-11-15 10:12] LABS: Urine Bacteria None Seen /hpf (None Seen)
[2024-11-15 10:29] LABS: Basophils # (auto) 0 10 ^3/uL (0-0.2); Basophils % (auto) 0.3 % (0.0-2.0); Eosinophils # (auto) 0 10 ^3/uL (0-0.8); Eosinophils % (auto) 0.7 % (0.0-7.0); Hematocrit 26.5 % (36.0-46.0); Hemoglobin 8.7 g/dL (12.2-16.2); Lymphocytes # (auto) 0.4 10 ^3/uL (0.4-5.4); Lymphocytes % (auto) 7.3 % (10.0-50.0); Mean Corpuscular Hemoglobin 28.8 pg (28.0-32.0); Mean Corpuscular Hgb Conc. 32.8 g/dL (32.0-36.0); Mean Corpuscular Volume 87.9 fL (80.0-100.0); Monocytes # (auto) 0.6 10 ^3/uL (0-1.3); Monocytes % (auto) 10.6 % (0.0-12.0); Neutrophils # (auto) 4.8 10 ^3/uL (1.6-8.6); Neutrophils % (auto) 81.1 % (37.0-80.0); Platelet Count (auto) 194 10^3/uL (140-450); Red Blood Cells 3.02 10^6/uL (4.0-5.20); Red Cell Distribution Width 16.3 % (11.8-14.3); White Blood Cell 5.9 10^3/uL (4.4-10.8)
--- NOTE | 2024-11-15 10:34 | ED.PDOC ---
SOB-HPI HPI Comments 54 y/o F, with PMHx of hypotension, anemia, and arthritis presents to the ED for CC of shortness of breath. Patient states, that she has been experiencing symptoms of shortness of breath with an associated non-productive cough [id number]. Patient relays, when coughing, force causes back pain. Patient denies chest pain, fever, sore-throat, or weakness. No other symptoms or modifying factors present at this time. Chief Complaint: Shortness of Breath Time Seen by MD: 10:00 Primary Care Provider: SATHYA Nuñez notes: Nurses Notes, Medications, Allergies Information Source: Patient, Relative (Child) Mode of Arrival: Ambulatory Severity: Moderate Timing: Weeks Duration: Since onset Context: At Rest PE Risk Factors: None History of: None Prehospital treatment: None Modifying Factors: Nothing Associated Signs and Symptoms: Cough If cough with SOB: Non-Productive Past Medical History PAST MEDICAL HISTORY: Anemia, Arthritis, Hypotension, Denies Surgical History: Denies all surgeries HOTEL SECURITY OFFICER History: No Pertinent HOTEL SECURITY OFFICER History Family History Family History: Reviewed,noncontributory to illness, Unknown Social History Smoker: Non-Smoker Alcohol: Sober Drugs: Denies Drug Use Lives In: Home Constitutional: denies: chills, diaphoresis, fatigue, fever, malaise, sweats, weakness, others EENTM: denies: blurred vision, double vision, ear bleeding, ear discharge, ear drainage, ear pain, ear ringing, eye pain, eye redness, hearing loss, mouth pain, mouth swelling, nasal discharge, nose bleeding, nose congestion, nose pain, photophobia, tearing, throat pain, throat swelling, voice changes, others Respiratory: reports: cough, shortness of breath; denies: hemoptysis, orthopnea, SOB at rest, SOB with excertion, stridor, wheezing, others Cardiovascular: denies: chest pain, dizzy spells, diaphoresis, Dyspnea on exertion, edema, irregular heart beat, left arm pain, lightheadedness, palpitations, PND, syncope, others Gastrointestinal: denies: abdomen distended, abdominal pain, blood streaked bowels, constipated, diarrhea, dysphagia, difficulty swallowing, hematemesis, melena, nausea, poor appetite, poor fluid intake, rectal bleeding, rectal pain, vomiting, others Genitourinary: denies: abnormal vagina bleeding, burning, dyspareunia, dysuria, flank pain, frequency, hematuria, incontinence, pain, , vagina discharge, urgency, others Neurological: denies: dizziness, fainting, headache, left sided numbness, left sided weakness, numbness, paresthesia, pre-existing deficit, right sided numbness, right sided weakness, seizure, speech problems, tingling, tremors, weakness, others Musculoskeletal: denies: back pain, gout, joint pain, joint swelling, muscle pain, muscle stiffness, neck pain, others Integumetry: denies: bruises, change in color, change in hair/nails, dryness, laceration, lesions, lumps, rash, wounds, others Allergic/Immunocompromised: denies: Difficulty Healing, Frequent Infections, Hives, Itching, others Hematologic/Lymphatic: denies: anemia, blood clots, easy bleeding, easy bruising, swollen glands, others Endocrine: denies: excessive hunger, excessive sweating, excessive thirst, excessive urination, flushing, intolerance to cold, intolerance to heat, unexplained weight gain, unexplained weight loss, others Psychiatric: denies: anxiety, bipolar disorder, depression, hopeless, panic disorder, schizophrenia, sleepless, suicidal, others All Other Systems: Reviewed and Negative Physical Exam General Appearance: Moderate Distress, Thin HEENT: Normal ENT Inspection, Pharynx Normal, TMs Normal Neck: Full Range of Motion, Non-Tender, Normal, Normal Inspection Respiratory: Chest Non-Tender, Lungs Clear, No Accessory Muscle Use, No Respiratory Distress, Normal Breath Sounds Cardiovascular: No Edema, No JVD, No Murmur, No Gallop, Normal Peripheral Pulse s, Regular Rate/Rhythm Breast Exam: Deferred Gastrointestinal: No Organomegaly, Non Tender, No Pulsatile Mass, Normal Bowel Sounds, Soft Genitalia: Deferred Pelvic: Deferred Rectal: Deferred Extremities: No calf tenderness, Normal capillary refill, No pedal edema Musculoskeletal : Apperance: Normal Neurologic: Alert, hand buffer II-XII nml as Tested, Motor Weakness, Normal Affect, Normal Mood, No Sensory Deficits Cerebellar Function: Normal Reflexes: Normal Skin: Dry, Pallor, Warm Lymphatic: No Adenopathy Was a procedure done? Was a procedure done?: No Differential Dx Differential Diagnosis: Bronchitis, Pneumonia, Sinusitis, Pharyngitis, URI X-Ray, Labs, Meds, VS Vital Signs Date Time Temp Pulse Resp B/P (MAP) Pulse Ox O2 Delivery O2 Flow Rate FiO2 11/15/24 10:30 98.5 85 18 102/65 (77) 100 98.5 11/15/24 10:30 18 18 100 Room Air* 0 21 11/15/24 10:07 98.6 87 20 98/60 (73) 98 98.6 11/15/24 09:54 86 Lab Test 11/15/24 12:51 11/15/24 11:04 11/15/24 10:23 11/15/24 10:15 Range/Units Troponin I High Sensitivity Pending 7 6 </=34 ng/L SARS-CoV-2 Antigen (Rapid) Negative NEGATIVE White Blood Count 5.9 4.4-10.8 10^3/uL Red Blood Count 3.02 L 4.0-5.20 10^6/uL Hemoglobin 8.7 L 12.2-16.2 g/dL Hematocrit 26.5 L 36.0-46.0 % Mean Corpuscular Volume 87.9 80.0-100.0 fL Mean Corpuscular Hemoglobin 28.8 28.0-32.0 pg Mean Corpuscular Hemoglobin Concent 32.8 32.0-36.0 g/dL Red Cell Distribution Width 16.3 H 11.8-14.3 % Platelet Count 194 140-450 10^3/uL Mean Platelet Volume 8.8 6.9-10.8 fL Neutrophils (%) (Auto) 81.1 H 37.0-80.0 % Lymphocytes (%) (Auto) 7.3 L 10.0-50.0 % Monocytes (%) (Auto) 10.6 0.0-12.0 % Eosinophils (%) (Auto) 0.7 0.0-7.0 % Basophils (%) (Auto) 0.3 0.0-2.0 % Neutrophils # (Auto) 4.8 1.6-8.6 10 ^3/uL Lymphocytes # (Auto) 0.4 0.4-5.4 10 ^3/uL Monocytes # (Auto) 0.6 0-1.3 10 ^3/uL Eosinophils # (Auto) 0 0-0.8 10 ^3/uL Basophils # (Auto) 0 0-0.2 10 ^3/uL Nucleated Red Blood Cells 0.0 % Sodium Level 139 136-145 mmol/L Potassium Level 3.5 3.5-5.1 mmol/L Chloride Level 109 H 98-107 mmol/L Carbon Dioxide Level 24 20-31 mmol/L Anion Gap 6 5-15 Blood Urea Nitrogen 12 9-23 mg/dL Creatinine 0.70 0.550-1.02 mg/dL Glomerular Filtration Rate Calc 104 >90 mL/min BUN/Creatinine Ratio 17.1 10.0-20.0 Serum Glucose 88 74-106 mg/dL Calcium Level 8.8 8.7-10.4 mg/dL B-Type Natriuretic Peptide 36.41 0-100 pg/mL Test 11/15/24 10:08 Range/Units Urine Color Light-yellow Yellow Urine Clarity Clear Clear Urine pH 6.0 5.0-9.0 Urine Specific [place] 1.013 1.001-1.035 Urine Protein Negative Negative Urine Ketones Negative Negative Urine Blood Negative Negative /uL Urine Nitrite Negative Negative Urine Bilirubin Negative Negative Urine Urobilinogen Normal Negative mg/dL Urine Leukocyte Esterase Negative Negative /uL Urine RBC None seen 0 - 4 /hpf Urine Microscopic WBC 1 0-5 /HPF Urine Squamous Epithelial Cells Few <5 /hpf Urine Bacteria None seen None Seen /hpf Urine Hyaline Casts Few 0 - 2 /lpf Urine Glucose Normal Normal mg/dL CXR: IMPRESSION: 1.2 cm nodular density in the right mid lung. This may represent a granuloma can be further evaluated with nonemergent CT if clinically indicated.Otherwise , no acute disease. The urine test is negative The CBC shows anemia with a hemoglobin 8.7 and hematocrit of 26.5 Upon admission, the patient most likely will get a CAT scan of the chest The patient was being admitted Images Reviewed?: Images reviewed and evaluated by me Time of 1ST Reevaluation: 10:30 Reevaluation 1ST: Unchanged Patient Education/Counseling: Diagnosis, Treatment, Prognosis Family Education/Counseling: No Family Present Departure 1 Departure Time of Disposition: 13:10 Impression: Primary Impression: Generalized weakness Additional Impressions: Shortness of breath Severe anemia Disposition: 09 ADMITTED INPATIENT Admit to: [facility] Condition: Fair Critical Care Note Critical Care Time?: No Stability Stability form required: Yes Unstable for transfer: Telemetry monitoring (Telemetry monitoring required), ED Physician Assesment (Clinical assesment) Heart Score Heart Score: Heart Score Response (Comments) Value History N/A 0 EKG N/A 0 Age N/A 0 Risk Factors N/A 0 Troponin N/A 0 Total 0 I personally scribed for MICHELLE URIOSTEGUI MD ([email or web address]) on 11/15/24 at 10:34. Electronically submitted by Belen Chavez ([email or web address]). I personally scribed for MICHELLE URIOSTEGUI MD ([email or web address]) on 11/15/24 at 10:48. Electronically submitted by Belen Chavez ([employer]). MICHELLE URIOSTEGUI MD November 15, 2024 10:34
[2024-11-15 10:36] LABS: Urine Blood Negative /uL (Negative); Urine Clarity Clear (Clear); Urine Color Light-Yellow (Yellow); Urine Hyaline Cast FEW /lpf (0 - 2); Urine Protein, UAD Negative (Negative); Urine Specific Gravity 1.013 (1.001-1.035); Urine Squamous Epithelial Cell FEW /hpf (<5); Urine Urobilinogen Normal (Negative); Urine WBC 1 /HPF (0-5)
--- NOTE | 2024-11-15 10:39 | DVH ---
CHEST RADIOGRAPH Indication: sob Technique: Frontal and lateral view of the chest was obtained Comparison: XY CHEST TWO VIEWS ROUTINE on DOS: 05/15/24 FINDINGS: Lines and Tubes: None Lungs: 1.2 cm nodular density in the right mid lung. Pleura: No effusion. No pneumothorax. Cardiomediastinal contours: Unremarkable Bones: Unremarkable IMPRESSION: 1.2 cm nodular density in the right mid lung. This may represent a granuloma can be further evaluated with nonemergent CT if clinically indicated.Otherwise , no acute disease.
[2024-11-15 10:42] LABS: Potassium 3.5 mmol/L (3.5-5.1); Sodium 139 mmol/L (136-145)
[2024-11-15 10:43] LABS: Anion Gap 6 (5-15); Calcium 8.8 mg/dL (8.7-10.4); Carbon Dioxide 24 mmol/L (20-31)
[2024-11-15 10:46] LABS: Chloride 109 mmol/L (98-107)
[2024-11-15 10:48] LABS: BUN/Creatinine Ratio 17.1 (10.0-20.0); Blood Urea Nitrogen 12 mg/dL (9-23); Glucose 88 mg/dL (74-106)
[2024-11-15 12:55] LABS: COVID19 ANTIGEN SOFIA FIA NEGATIVE (NEGATIVE)
--- NOTE | 2024-11-15 13:06 | ECG ---
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
[2024-11-15] MEDS ORDERED: FOLI-119 PO (13:59)
[2024-11-15] MEDS ORDERED: ACETAMINOPHEN 325 MG TAB PO PRN (14:00)
[2024-11-15] MEDS ORDERED: IOHEXOL 350 MG/ML 100ML IJ ONE (14:14)
--- NOTE | 2024-11-15 14:14 | DVHHP2 ---
History of Present Illness Reason for Visit: SOB History of Present Illness Negar Mittal is a 54-year-old female with past medical history of arthritis, anemia, celiac disease, hypotension, and colonoscopy who presents to the ED with SOB x2 weeks with cough. Patient reports that she has been having a productive yellow phlegm when coughing. Patient reports that the shortness of breath started when she was sleeping in her bed. Patient denies any recent sick contacts, recent travels, recent ingestion of spoiled food, fever, chills, lightheadedness, weakness, dizziness, chest pain, abdominal pain, nausea, vomiting, or diarrhea. Upon examination patient is using a right-sided cane with ambulation. With minimal exertion noted she endorses shortness of breath. Heme/Onc: Anemia NOS Past Medical History Arthritis Celiac disease Hypotension Family History: DM, Hypertension, Other (Mom with diabetes and dad with hypertension) Smoke: No ALCOHOL: none Drugs: None Lives: with Family Domestic Violence: Neg Review of Systems Respiratory: Cough, Shortness of breath, Sputum Allergies: Coded Allergies: No Known Drug Allergy (Verified Allergy, Unknown, 04/07/24) Medications Current Medications Medications Dose Ordered Sig/Preet Route Start Time Stop Time Status Last Admin Dose Admin Ondansetron HCl 4 mg Q4HP PRN IV 11/15/24 14:00 UNV Enoxaparin Sodium 30 mg DAILY SC 11/16/24 10:00 UNV Acetaminophen 650 mg Q6HP PRN PO 11/15/24 14:00 UNV Exam Vital Signs Vital Signs Date Time Temp Pulse Resp B/P (MAP) Pulse Ox O2 Delivery O2 Flow Rate FiO2 11/15/24 10:30 98.5 85 18 102/65 (77) 100 98.5 11/15/24 10:30 Room Air* 0 21 General Appearance: Alert, Oriented X3, Cooperative, mild distress HEENT: Atraumatic, PERRLA, EOMI, Mucous membr. moist/pink Respiratory: Other (Diminished) Cardiovascular: Regular rate, Normal S1, Normal S2, No murmurs Abdominal: Normal bowel sounds, Soft, No tenderness Extremities: Normal pulses Neuro: Normal speech, Normal tone, Sensation intact Psych/Mental Status: Mental status NL, Mood NL Labs/Xrays Labs Test 11/15/24 12:51 11/15/24 10:23 11/15/24 10:15 11/15/24 10:08 Range/Units Troponin I High Sensitivity 7 </=34 ng/L SARS-CoV-2 Antigen (Rapid) Negative NEGATIVE White Blood Count 5.9 4.4-10.8 10^3/uL Red Blood Count 3.02 L 4.0-5.20 10^6/uL Hemoglobin 8.7 L 12.2-16.2 g/dL Hematocrit 26.5 L 36.0-46.0 % Mean Corpuscular Volume 87.9 80.0-100.0 fL Mean Corpuscular Hemoglobin 28.8 28.0-32.0 pg Mean Corpuscular Hemoglobin Concent 32.8 32.0-36.0 g/dL Red Cell Distribution Width 16.3 H 11.8-14.3 % Platelet Count 194 140-450 10^3/uL Mean Platelet Volume 8.8 6.9-10.8 fL Neutrophils (%) (Auto) 81.1 H 37.0-80.0 % Lymphocytes (%) (Auto) 7.3 L 10.0-50.0 % Monocytes (%) (Auto) 10.6 0.0-12.0 % Eosinophils (%) (Auto) 0.7 0.0-7.0 % Basophils (%) (Auto) 0.3 0.0-2.0 % Neutrophils # (Auto) 4.8 1.6-8.6 10 ^3/uL Lymphocytes # (Auto) 0.4 0.4-5.4 10 ^3/uL Monocytes # (Auto) 0.6 0-1.3 10 ^3/uL Eosinophils # (Auto) 0 0-0.8 10 ^3/uL Basophils # (Auto) 0 0-0.2 10 ^3/uL Nucleated Red Blood Cells 0.0 % Sodium Level 139 136-145 mmol/L Potassium Level 3.5 3.5-5.1 mmol/L Chloride Level 109 H 98-107 mmol/L Carbon Dioxide Level 24 20-31 mmol/L Anion Gap 6 5-15 Blood Urea Nitrogen 12 9-23 mg/dL Creatinine 0.70 0.550-1.02 mg/dL Glomerular Filtration Rate Calc 104 >90 mL/min BUN/Creatinine Ratio 17.1 10.0-20.0 Serum Glucose 88 74-106 mg/dL Calcium Level 8.8 8.7-10.4 mg/dL B-Type Natriuretic Peptide 36.41 0-100 pg/mL Urine Color Light-yellow Yellow Urine Clarity Clear Clear Urine pH 6.0 5.0-9.0 Urine Specific [place] 1.013 1.001-1.035 Urine Protein Negative Negative Urine Ketones Negative Negative Urine Blood Negative Negative /uL Urine Nitrite Negative Negative Urine Bilirubin Negative Negative Urine Urobilinogen Normal Negative mg/dL Urine Leukocyte Esterase Negative Negative /uL Urine RBC None seen 0 - 4 /hpf Urine Microscopic WBC 1 0-5 /HPF Urine Squamous Epithelial Cells Few <5 /hpf Urine Bacteria None seen None Seen /hpf Urine Hyaline Casts Few 0 - 2 /lpf Urine Glucose Normal Normal mg/dL CHEST RADIOGRAPH Indication: sob Technique: Frontal and lateral view of the chest was obtained Comparison: XY CHEST TWO VIEWS ROUTINE on DOS: 05/15/24 FINDINGS: Lines and Tubes: None Lungs: 1.2 cm nodular density in the right mid lung. Pleura: No effusion. No pneumothorax. Cardiomediastinal contours: Unremarkable Bones: Unremarkable IMPRESSION: 1.2 cm nodular density in the right mid lung. This may represent a granuloma can be further evaluated with nonemergent CT if clinically indicated.Otherwise Assessment/Plan Assessment/Plan Assessment Dyspnea likely secondary to pneumonia versus PE 1.2 cm nodular density in the right mid lung rule out mass Anemia History of arthritis History of celiac disease History of hypotension History of colonoscopy Plan Admit to [facility] Trend labs COVID test Influenza test Troponin negative x2 Chest x-ray UA BNP EKG D-dimer ESR CRP CT chest with and without contrast to rule out PE as well as ruling out granuloma versus mass IV antibiotics-ceftriaxone Steroids Duo nebs Home medications reconciled DVT prophylaxis-Lovenox PUD prophylaxis-PPIs Discussed plan of care with patient and nurse Plan discussed with: Patient My Orders Orders - ELIJAH TRAORE [employer]OR [employer] MECH[employer]IC Procedure Category Date Status Time Chest Without Contrast CT 11/15/24 Logged 13:57 Admit ADMIT 11/15/24 Transmitted 13:57 Allergies WILLOW 11/15/24 In Process 13:57 Code Status CODE 11/15/24 Transmitted 13:57 Ondansetron Hcl PHA 11/15/24 Transmitted (Zofran) 14:00 Complete Blood Count LAB 11/16/24 Verified 04:00 Comprehensive LAB 11/16/24 Verified Metabolic Panel 04:00 Cardiac DIET 11/15/24 Transmitted Diet-2gna,Lofat,Lochol Dinner Enoxaparin Sodium PHA 11/16/24 Transmitted (Lovenox) 10:00 Acetaminophen Tablet PHA 11/15/24 Transmitted (Tylenol Tablet) 14:00 Pantoprazole Tablet PHA 11/16/24 Verified (Protonix Tablet) 10:00 (Nf) Calcium PHA 11/15/24 Verified Polycarbophil (Fiber 22:00 Date of Service: November 15, 2024 Billing Provider: ELIJAH TRAORE Common Visit Codes: [id number] INP/OBS CARE (HIGH) ELIJAH TRAORE November 15, 2024 14:14
[2024-11-15] MEDS: cefTRIAXone 1GM/50ML D5W 50 ML IV SCH (15:05)
[2024-11-15] MEDS: methylPREDNISolone SOD SUCC 40 MG/ML VL IV SCH (15:14)
--- NOTE | 2024-11-15 15:20 | DVH ---
Procedure: CT CT CHEST WITH AND WO 11/15/2024 02:15 PM History: r/o pe Comparison: None Technique: After the uneventful administration of contrast intravenously, CT imaging was performed th rough the chest. Coronal and sagittal reformations were performed by the technologist. 3D image postprocessing was performed on a dedicated workstation and images were used for interpretat ion and reporting. Radiation Dose : CT Dose: CTDI volume is 4.59 mGy. Dose-length product is 324.69 mGy*cm Findings: The thyroid gland is unremarkable. No pulmonary embolism. No aortic aneurysm or dissection. The pulmonary trunk is normal in size. Heart size is within normal limits. There is mediastinal and bilateral hilar lymphadenopathy measuring up to 1.6 cm in short axis. No pneumothorax, pleural effusion or focal airspace consolidation. Few scattered blebs. 2 mm right mi ddle lobe solid nodule. 1 cm right lower lobe nodular opacity. There is Additional right lower lobe 1 .1 cm subtle ground-glass opacity. Lingula and right middle lobe atelectasis. Mild wall thickening of partially visualized proximal small bowel loops. Otherwise, Partial view of the upper abdomen is unremarkable. Prominent bilateral axillary lymph nodes measuring up to 1.2 cm on the right and 1.1 cm on the left. Soft tissues are unremarkable. No destructive osseous lesions are noted. IMPRESSION: No pulmonary embolism. No aortic aneurysm or dissection. Mediastinal and bilateral hilar lymphadenopathy which may be reactive/neoplastic. Bilateral axillary lymphadenopathy which may be reactive/neoplastic. 1 cm right lower lobe solid nodular opacity with additional 1.1 cm right lower lobe ground-glass nodu lar opacity . Neoplastic nodules are within the differential. Follow-up is recommended. Additional 2 mm right middle lobe solid nodule is noted. Mild wall thickening of partially visualized proximal small bowel loops which may be due to inadequat e distention/enteritis.
[2024-11-15 15:29] LABS: Rapid Influenza A Negative (Negative); Rapid Influenza B Negative (Negative)
[2024-11-15] MEDS ORDERED: METH2.5T62 PO (15:37)
[2024-11-15 15:52] LABS: Erythrocyte Sedimentation Rate 111 mm/hr (0-20)
[2024-11-15] MEDS: HYDROcodone-ACET 5/325MG TAB PO ONE (16:18)
[2024-11-15] MEDS: ALBUTEROL SULF 2.5 MG/0.5ML(0.5%) NEB SOLN NEB PRN (21:15)
[2024-11-15] MEDS: IPRATROPIUM BROM 0.5 MG/2.5ML INH SOL NEB PRN (21:15)
[2024-11-16] VITALS (9 sets, daily range): BP systolic 93–112; BP diastolic 59–65; PULSE 51–70; RESP 16–19; TEMP 97.3–98.1; O2SAT 98–100
[2024-11-16] MEDS: ONDANSETRON HCL 4 MG/2 ML VIAL IV PRN (00:18)
[2024-11-16 07:26] LABS: Basophils # (auto) 0 10 ^3/uL (0-0.2); Basophils % (auto) 0.2 % (0.0-2.0); Eosinophils # (auto) 0 10 ^3/uL (0-0.8); Hematocrit 26.1 % (36.0-46.0); Hemoglobin 8.8 g/dL (12.2-16.2); Lymphocytes # (auto) 0.4 10 ^3/uL (0.4-5.4); Mean Corpuscular Hemoglobin 29.5 pg (28.0-32.0); Mean Corpuscular Hgb Conc. 33.9 g/dL (32.0-36.0); Mean Corpuscular Volume 87.3 fL (80.0-100.0); Monocytes # (auto) 0.3 10 ^3/uL (0-1.3); Monocytes % (auto) 6.7 % (0.0-12.0); Neutrophils # (auto) 3.8 10 ^3/uL (1.6-8.6); Neutrophils % (auto) 84.1 % (37.0-80.0); Nucleated Red Blood Cells % 0.1 %; Platelet Count (auto) 177 10^3/uL (140-450); Red Blood Cells 2.99 10^6/uL (4.0-5.20); Red Cell Distribution Width 15.9 % (11.8-14.3); White Blood Cell 4.5 10^3/uL (4.4-10.8)
[2024-11-16 07:34] LABS: Alanine Aminotransferase 17 U/L (7-40); Alkaline Phosphatase 47 U/L (46-116); Anion Gap 10 (5-15); BUN/Creatinine Ratio 21.3 (10.0-20.0); Blood Urea Nitrogen 13 mg/dL (9-23); Calcium 9.1 mg/dL (8.7-10.4); Carbon Dioxide 23 mmol/L (20-31); Sodium 141 mmol/L (136-145); Total Protein 7.6 g/dL (5.7-8.2)
[2024-11-16 07:35] LABS: Albumin 3.4 g/dL (3.2-4.8); Aspartate Aminotransferase 33 U/L (13-40)
[2024-11-16 07:38] LABS: Bilirubin, Total 0.3 mg/dL (0.2-1.0); Chloride 108 mmol/L (98-107); Potassium 3.3 mmol/L (3.5-5.1)
[2024-11-16 07:54] LABS: Glucose 176 mg/dL (74-106)
[2024-11-16] MEDS ORDERED: HYDROcodone-ACET 10/325MG TAB PO PRN (09:45)
[2024-11-16] MEDS: FOLIC ACID 1 MG TAB PO SCH (09:47)
[2024-11-16] MEDS: PANTOPRAZOLE 40 MG TAB PO SCH (09:47)
[2024-11-16] MEDS: ENOXAPARIN SOD 30 MG/0.3 ML SYRINGE SC SCH (09:48)
--- NOTE | 2024-11-16 12:48 | DVHINCON2 ---
Date Seen: November 16, 2024 Reason for Consultation Right hallux scab History of Present Illness Negar Mittal is a 54-year-old female with past medical history of arthritis, anemia, celiac disease, hypotension, and colonoscopy who presents to the ED with SOB x2 weeks with cough. Patient reports that she has been having a productive yellow phlegm when coughing. Patient reports that the shortness of breath started when she was sleeping in her bed. Patient denies any recent sick contacts, recent travels, recent ingestion of spoiled food, fever, chills, lightheadedness, weakness, dizziness, chest pain, abdominal pain, nausea, vomiting, or diarrhea. Upon examination patient is using a right-sided cane with ambulation. With minimal exertion noted she endorses shortness of breath. Past Medical History See H&P Past Surgical History See H&P Family History: Hypertension G8 MOTHER G8 FATHER G8 SISTER Thyroid disease G8 SISTER Allergies: Coded Allergies: No Known Drug Allergy (Verified Allergy, Unknown, 04/07/24) Home Meds Active Scripts Pantoprazole Sodium Sesquihydr (Protonix) 40 Mg Tab, 40 MG PO DAILY, #30 TAB 5 Refills Prov:LYNN VANN MD 08/23/24 Calcium Polycarbophil (Fiber Tabs) 625 Mg Tab, 625 MG PO BID for 30 Days, #60 TAB 0 Refills Prov:ALICIA HUNTER MD 05/18/24 Polyethylene Glycol 3350 (Goodsense Clearlax) 17 Gm/Scoop Pow, 17 GM PO DAILY for 7 Days, #10 POW 0 Refills Prov:ALICIA HUNTER MD 05/18/24 Sennosides-Docusate Sodium (Senokot S) 1 Tab Tab, 1 TAB PO BID for 14 Days, #28 TAB 0 Refills Prov:ALICIA HUNTER MD 05/18/24 Ondansetron Odt 4MG Tab (ZOFRAN PO) 4 Mg Tb, 4 MG PO TIDPRN PRN for 5 Days, #15 TAB ODT TAB-DISSOLVE IN MOUTH, THEN SWALLOW Prov:ALICIA HUNTER MD 05/18/24 Meclizine Hcl (Meclizine Hcl) 25 Mg Tab, 25 MG PO Q8HPRN PRN for 30 Days, #90 TAB Prov:JAMIEHAN RESIDENT 04/10/24 Reported Medications Methotrexate (Methotrexate Sodium) 2.5 Mg Tab, 8 TAB PO QWEEKLY 11/15/24 Folic Acid (Folic Acid) 1 Mg Tab, 1 TAB PO DAILY 11/15/24 Current Medications Current Medications Medications (Trade) Dose Ordered Sig/Preet Route PRN Reason Start Time Stop Time Status Last Admin Ondansetron HCl (Zofran) 4 mg Q4HP PRN IV NAUSEA / VOMITING 11/15/24 14:00 11/16/24 00:18 Enoxaparin Sodium (Lovenox) 30 mg DAILY SC 11/16/24 10:00 11/16/24 09:48 Acetaminophen (Tylenol Tablet) 650 mg Q6HP PRN PO PAIN SCALE 1-3 OR TEMP>100.4 11/15/24 14:00 Pantoprazole Sodium (Protonix Tablet) 40 mg DAILY PO 11/16/24 10:00 11/16/24 09:47 Patient Own Medication 625 mg BID PO 11/15/24 22:00 Folic Acid 1 mg DAILY PO 11/16/24 10:00 11/16/24 09:47 Ceftriaxone Sodium 50 ml @ 100 mls/hr DAILY@09 IV 11/15/24 14:00 11/16/24 09:48 Albuterol (Ventolin Medneb) 2.5 mg Q4HPRN PRN NEB SHORTNESS OF BREATH 11/15/24 14:15 11/15/24 21:15 Ipratropium [place] (Atrovent Medneb) 0.5 mg Q4HPRN PRN NEB SHORTNESS OF BREATH 11/15/24 14:15 11/15/24 21:15 Methylprednisolone Sodium Succinate (Solu Medrol) 40 mg Q8HR IV 11/15/24 14:15 11/16/24 05:22 Acetaminophen/ Hydrocodone Bitart ([place] 10/325MG Tab) 1 tab Q4HP PRN PO SEVERE PAIN (7-10 PAIN SCALE) 11/16/24 09:45 Vital Signs Vital Signs Date Time Temp Pulse Resp B/P (MAP) Pulse Ox O2 Delivery O2 Flow Rate FiO2 11/16/24 09:00 97.8 51 16 112/65 (81) 100 97.8 11/16/24 07:32 Nasal Cannula 2.0 11/16/24 07:32 28 Physical Exam Dermatological: Ingrown toenail present lateral border of hallux toe Preiungual tissue is inflamed with my erythema and tenderness to palpation Mild erythema noted around affected nail No deformities noted Vascular: Dorsalis pedis and posterior tibial pulses are 2+ bilaterally Capillary refill is <2 seconds Skin temperature is warm bilaterally Neurologic: Protective sensation intact to 10g monofilament Vibration sensation normal Musculoskeletal: Range of motion at the ankle and MTP joints is within normal limits. Strength is 5/5 in all tested muscle groups. No gait abnormality Labs/Diagnostic Data Labs Test 11/16/24 06:21 11/15/24 14:30 11/15/24 12:57 11/15/24 12:51 Range/Units White Blood Count 4.5 4.4-10.8 10^3/uL Red Blood Count 2.99 L 4.0-5.20 10^6/uL Hemoglobin 8.8 L 12.2-16.2 g/dL Hematocrit 26.1 L 36.0-46.0 % Mean Corpuscular Volume 87.3 80.0-100.0 fL Mean Corpuscular Hemoglobin 29.5 28.0-32.0 pg Mean Corpuscular Hemoglobin Concent 33.9 32.0-36.0 g/dL Red Cell Distribution Width 15.9 H 11.8-14.3 % Platelet Count 177 140-450 10^3/uL Mean Platelet Volume 9.4 6.9-10.8 fL Neutrophils (%) (Auto) 84.1 H 37.0-80.0 % Lymphocytes (%) (Auto) 9.0 L 10.0-50.0 % Monocytes (%) (Auto) 6.7 0.0-12.0 % Eosinophils (%) (Auto) 0.0 0.0-7.0 % Basophils (%) (Auto) 0.2 0.0-2.0 % Neutrophils # (Auto) 3.8 1.6-8.6 10 ^3/uL Lymphocytes # (Auto) 0.4 0.4-5.4 10 ^3/uL Monocytes # (Auto) 0.3 0-1.3 10 ^3/uL Eosinophils # (Auto) 0 0-0.8 10 ^3/uL Basophils # (Auto) 0 0-0.2 10 ^3/uL Nucleated Red Blood Cells 0.1 % Sodium Level 141 136-145 mmol/L Potassium Level 3.3 L 3.5-5.1 mmol/L Chloride Level 108 H 98-107 mmol/L Carbon Dioxide Level 23 20-31 mmol/L Anion Gap 10 5-15 Blood Urea Nitrogen 13 9-23 mg/dL Creatinine 0.61 0.550-1.02 mg/dL Glomerular Filtration Rate Calc 108 >90 mL/min BUN/Creatinine Ratio 21.3 H 10.0-20.0 Serum Glucose 176 H 74-106 mg/dL Calcium Level 9.1 8.7-10.4 mg/dL Total Bilirubin 0.3 0.2-1.0 mg/dL Aspartate Amino Transferase (AST) 33 13-40 U/L Alanine Aminotransferase (ALT) 17 7-40 U/L Alkaline Phosphatase 47 46-116 U/L Total Protein 7.6 5.7-8.2 g/dL Albumin 3.4 3.2-4.8 g/dL Influenza Type A Antigen Negative Negative Influenza Type B Antigen Negative Negative C-Reactive Protein High Sensitivity 1.08 H <1.0 mg/dL Troponin I High Sensitivity 7 </=34 ng/L Test 11/15/24 10:23 11/15/24 10:15 11/15/24 10:08 Range/Units SARS-CoV-2 Antigen (Rapid) Negative NEGATIVE Erythrocyte Sedimentation Rate 111 H 0-20 mm/hr D-Dimer, Quantitative 1.78 H 0.0-0.49 mg/L FEU B-Type Natriuretic Peptide 36.41 0-100 pg/mL Urine Color Light-yellow Yellow Urine Clarity Clear Clear Urine pH 6.0 5.0-9.0 Urine Specific [place] 1.013 1.001-1.035 Urine Protein Negative Negative Urine Ketones Negative Negative Urine Blood Negative Negative /uL Urine Nitrite Negative Negative Urine Bilirubin Negative Negative Urine Urobilinogen Normal Negative mg/dL Urine Leukocyte Esterase Negative Negative /uL Urine RBC None seen 0 - 4 /hpf Urine Microscopic WBC 1 0-5 /HPF Urine Squamous Epithelial Cells Few <5 /hpf Urine Bacteria None seen None Seen /hpf Urine Hyaline Casts Few 0 - 2 /lpf Urine Glucose Normal Normal mg/dL Problems(with codes): (1) Autonomic disorder (2) Nausea and vomiting (3) Acute pain of both ears (4) UTI (urinary tract infection) (5) Hypokalemia (6) Dizziness and giddiness (7) Acute cystitis without hematuria (8) Musculoskeletal pain (9) Hematochezia (10) Melena (11) Anemia (12) GI bleed (13) Fibromyalgia (14) Shortness of breath (15) Severe anemia (16) Generalized weakness Plan/Recommendation ASSESSMENT: Patient is a 54 year old who was seen on the floor for ingrown nail PLAN: Discussed monitoring, avulsion, matrixectomy. Patient elected nail avulsion given chronic painful ingrown symptoms. Recommend that we do a matrixectomy as an outpatient Patient will follow up with me in 1 week We will take out the lateral border that is causing the eschar All questions were answered, and concerns addressed to the patients satisfaction. Patient is to contact the clinic should any concerns or questions arise. Patient understands that if any questions or concerns arise prior to the next appointment, I should be contacted immediately. FOLLOW-UP: RTC 1 week after discharge Plan discussed with: Patient Date of Service: November 16, 2024 Billing Provider: SEBASTIAN LYNN DPM Common Visit Codes: CONSULT ONLY Consultation Codes: [id number] CONSULT <80MIN SEBASTIAN LYNN DPM November 16, 2024 12:48
--- NOTE | 2024-11-16 15:35 | DVHPNRES ---
Progress Note Date Seen: November 16, 2024 Resident Creating Document: RADHA RAMOS CRISSY Has the PT tested + for MRSA If YES, has PT been informed?: Yes Medical Necessity Reason Pt with a Central, PICC or Fol: No Subjective Review of Systems Negar Mittal is a 54-year-old female with past medical history of arthritis, anemia, celiac disease, hypotension, and colonoscopy who presents to the ED with SOB x2 weeks with cough. Patient reports that she has been having a productive yellow phlegm when coughing. Patient reports that the shortness of breath started when she was sleeping in her bed. Patient denies any recent sick contacts, recent travels, recent ingestion of spoiled food, fever, chills, lightheadedness, weakness, dizziness, chest pain, abdominal pain, nausea, vomiting, or diarrhea. Upon examination patient is using a right-sided cane with ambulation. With minimal exertion noted she endorses shortness of breath. Patient seen and examined at bedside. Patient is still complaining of shortness of breaths on right-sided chest pain. Patient reports: No new complaints Changes from previous H/P or p: No Changes Objective vital signs Vital Sign Date Time Temp Pulse Resp B/P (MAP) Pulse Ox O2 Delivery O2 Flow Rate FiO2 11/16/24 13:00 97.5 60 16 110/60 (77) 98 97.5 11/16/24 08:00 Nasal Cannula* 2 28 Total Intake and Output 11/15/24 11/15/24 11/16/24 15:00 23:00 07:00 Intake Total 150 ml Balance 150 ml medications Current Medications Medications Dose Ordered Sig/Preet Route Start Time Stop Time Status Last Admin Dose Admin Ondansetron HCl 4 mg Q4HP PRN IV 11/15/24 14:00 11/16/24 00:18 4 MG Enoxaparin Sodium 30 mg DAILY SC 11/16/24 10:00 11/16/24 09:48 30 MG Acetaminophen 650 mg Q6HP PRN PO 11/15/24 14:00 Pantoprazole Sodium 40 mg DAILY PO 11/16/24 10:00 11/16/24 09:47 40 MG Patient Own Medication 625 mg BID PO 11/15/24 22:00 Folic Acid 1 mg DAILY PO 11/16/24 10:00 11/16/24 09:47 1 MG Ceftriaxone Sodium 50 ml @ 100 mls/hr DAILY@09 IV 11/15/24 14:00 11/16/24 09:48 100 MLS/HR Albuterol 2.5 mg Q4HPRN PRN NEB 11/15/24 14:15 11/15/24 21:15 2.5 MG Ipratropium [place] 0.5 mg Q4HPRN PRN NEB 11/15/24 14:15 11/15/24 21:15 0.5 MG Methylprednisolone Sodium Succinate 40 mg Q8HR IV 11/15/24 14:15 11/16/24 14:10 40 MG Acetaminophen/ Hydrocodone Bitart 1 tab Q4HP PRN PO 11/16/24 09:45 Examination General Appearance: Alert, Oriented X3, Cooperative, No acute distress HEENT: Atraumatic, PERRLA, EOMI, Mucous membrane moist/pink Respiratory: Bilateral rhonchi and right-sided chest tenderness Cardiovascular: Regular rate, Normal S1, Normal S2, No murmurs, no chest wall tenderness Abdominal: Normal bowel sounds, Soft, No tenderness, No hepatospenomegaly, No masses Extremities: No clubbing, No cyanosis, No edema, Normal pulses, No tenderness/swelling Skin: No rashes, No breakdown, No significant lesion Neuro: Normal gait, Normal speech, Strength at 5/5 X4 ext, Normal tone, Sensation intact, Cranial nerves 3-12 NL, Reflexes 2+ Psych/Mental Status: Mental status NL, Mood NL laboratory and microbiology Laboratory Tests 11/16/24 06:21 Test 11/16/24 06:21 Range/Units Serum Glucose 176 H 74-106 mg/dL Labs and/or images reviewed: Labs reviewed by me, Image(s) reviewed by me Problem List/Assessment/Plan Problem List/Assessment/Plan Pneumonia, likely due to Gram-positive Gram-negative bacteria Pulmonary nodule, likely lung cancer Chest CT scan shows, Mediastinal and bilateral hilar lymphadenopathy which may be reactive/neoplastic, bilateral axillary lymphadenopathy which may be reactive/neoplastic and 1 cm right lower lobe solid nodular opacity with additional 1.1 cm right lower lobe ground-glass nodular opacity IR consulted for possible needle biopsy, recommended the new dose too small to be biopsied Follow up on outpatient basis with hematology/oncology Empiric antibiotic, Rocephin Breathing treatment IV fluid Pain management History of scleroderma History of hypertension Vertigo Continue home meds History of moderate anemia DIET: Regular DVT PROPHYLAXIS: Lovenox GI PROPHYLAXIS:: Protonix CODE STATUS: Goal of care discussed for more than 18 minutes, full code DISPOSITION: Med/surge Patient's status and plan discussed with the patient. Case discussed with Dr. Espinoza. Plan discussed with: Patient, Other (RN) My Orders My Orders Orders - RADHA RAMOS RESDIMARIA T Procedure Category Date Status Time *Podiatry Consult CONS 11/16/24 Transmitted [place](Dvmg) 09:34 Hydrocodone-Acet PHA 11/16/24 In Process 10/325mg Tab ([place] 09:45 * Radiologist Consult CONS 11/16/24 Transmitted 12:55 Date of Service: November 16, 2024 Billing Provider: AROLDO ESPINOZA DO Common Visit Codes: [id number] INP/OBS CARE(HIGH) RADHA RAMOS RESDIENT November 16, 2024 15:35 AROLDO ESPINOZA DO November 19, 2024 17:45
[2024-11-16] MEDS: FOLIC ACID 1 MG TAB PO ONE (15:45)
[2024-11-16] MEDS: MECLIZINE HCL 25 MG TAB PO PRN (22:51)
[2024-11-17] VITALS (10 sets, daily range): BP systolic 100–121; BP diastolic 45–98; PULSE 54–88; RESP 16–18; TEMP 97.2–98.9; O2SAT 95–100
[2024-11-17 05:50] LABS: Basophils # (auto) 0 10 ^3/uL (0-0.2); Basophils % (auto) 0.1 % (0.0-2.0); Eosinophils # (auto) 0 10 ^3/uL (0-0.8); Hemoglobin 8.6 g/dL (12.2-16.2); Lymphocytes # (auto) 0.6 10 ^3/uL (0.4-5.4); Lymphocytes % (auto) 7.2 % (10.0-50.0); Mean Corpuscular Hemoglobin 29.1 pg (28.0-32.0); Mean Corpuscular Hgb Conc. 33.1 g/dL (32.0-36.0); Mean Corpuscular Volume 87.9 fL (80.0-100.0); Monocytes # (auto) 1.1 10 ^3/uL (0-1.3); Monocytes % (auto) 12.9 % (0.0-12.0); Neutrophils # (auto) 6.8 10 ^3/uL (1.6-8.6); Neutrophils % (auto) 79.8 % (37.0-80.0); Platelet Count (auto) 196 10^3/uL (140-450); Red Blood Cells 2.95 10^6/uL (4.0-5.20); Red Cell Distribution Width 16.1 % (11.8-14.3); White Blood Cell 8.6 10^3/uL (4.4-10.8)
[2024-11-17 06:14] LABS: Alanine Aminotransferase 14 U/L (7-40); Albumin 3.2 g/dL (3.2-4.8); Anion Gap 11 (5-15); Aspartate Aminotransferase 28 U/L (13-40); BUN/Creatinine Ratio 20.3 (10.0-20.0); Blood Urea Nitrogen 13 mg/dL (9-23); Calcium 9.1 mg/dL (8.7-10.4); Carbon Dioxide 22 mmol/L (20-31); Potassium 3.8 mmol/L (3.5-5.1); Sodium 145 mmol/L (136-145); Total Protein 7.2 g/dL (5.7-8.2)
[2024-11-17 06:15] LABS: Alkaline Phosphatase 42 U/L (46-116); Bilirubin, Total 0.2 mg/dL (0.2-1.0); Chloride 112 mmol/L (98-107); Glucose 145 mg/dL (74-106)
[2024-11-17] MEDS ORDERED: FOLIC ACID 1 MG TAB PO SCH (10:00)
[2024-11-17] MEDS ORDERED: AZIT500T66 PO (10:22)
[2024-11-17] MEDS ORDERED: AUG875T PO (10:22)
--- NOTE | 2024-11-17 10:23 | DVHDSRES ---
Discharge Summary Date of Admission Resident Creating Document: RADHA RAMOS RESDIENT November 15, 2024 at 13:57 Date of Discharge: November 17, 2024 Admitting Diagnosis Pneumonia Labs/Diagnostic Data: Laboratory Results Test 11/17/24 05:27 11/15/24 14:30 11/15/24 12:57 11/15/24 12:51 White Blood Count 8.6 10^3/uL (4.4-10.8) Red Blood Count 2.95 10^6/uL (4.0-5.20) Hemoglobin 8.6 g/dL (12.2-16.2) Hematocrit 26.0 % (36.0-46.0) Mean Corpuscular Volume 87.9 fL (80.0-100.0) Mean Corpuscular Hemoglobin 29.1 pg (28.0-32.0) Mean Corpuscular Hemoglobin Concent 33.1 g/dL (32.0-36.0) Red Cell Distribution Width 16.1 % (11.8-14.3) Platelet Count 196 10^3/uL (140-450) Mean Platelet Volume 9.3 fL (6.9-10.8) Neutrophils (%) (Auto) 79.8 % (37.0-80.0) Lymphocytes (%) (Auto) 7.2 % (10.0-50.0) Monocytes (%) (Auto) 12.9 % (0.0-12.0) Eosinophils (%) (Auto) 0.0 % (0.0-7.0) Basophils (%) (Auto) 0.1 % (0.0-2.0) Neutrophils # (Auto) 6.8 10 ^3/uL (1.6-8.6) Lymphocytes # (Auto) 0.6 10 ^3/uL (0.4-5.4) Monocytes # (Auto) 1.1 10 ^3/uL (0-1.3) Eosinophils # (Auto) 0 10 ^3/uL (0-0.8) Basophils # (Auto) 0 10 ^3/uL (0-0.2) Nucleated Red Blood Cells 0.0 % Sodium Level 145 mmol/L (136-145) Potassium Level 3.8 mmol/L (3.5-5.1) Chloride Level 112 mmol/L (98-107) Carbon Dioxide Level 22 mmol/L (20-31) Anion Gap 11 (5-15) Blood Urea Nitrogen 13 mg/dL (9-23) Creatinine 0.64 mg/dL (0.550-1.02) Glomerular Filtration Rate Calc 106 mL/min (>90) BUN/Creatinine Ratio 20.3 (10.0-20.0) Serum Glucose 145 mg/dL (74-106) Calcium Level 9.1 mg/dL (8.7-10.4) Total Bilirubin 0.2 mg/dL (0.2-1.0) Aspartate Amino Transferase (AST) 28 U/L (13-40) Alanine Aminotransferase (ALT) 14 U/L (7-40) Alkaline Phosphatase 42 U/L (46-116) Total Protein 7.2 g/dL (5.7-8.2) Albumin 3.2 g/dL (3.2-4.8) Influenza Type A Antigen Negative (Negative) Influenza Type B Antigen Negative (Negative) C-Reactive Protein High Sensitivity 1.08 mg/dL (<1.0) Troponin I High Sensitivity 7 ng/L (</=34) Test 11/15/24 10:23 11/15/24 10:15 11/15/24 10:08 SARS-CoV-2 Antigen (Rapid) Negative (NEGATIVE) Erythrocyte Sedimentation Rate 111 mm/hr (0-20) D-Dimer, Quantitative 1.78 mg/L FEU (0.0-0.49) B-Type Natriuretic Peptide 36.41 pg/mL (0-100) Urine Color Light-yellow (Yellow) Urine Clarity Clear (Clear) Urine pH 6.0 (5.0-9.0) Urine Specific [place] 1.013 (1.001-1.035) Urine Protein Negative (Negative) Urine Ketones Negative (Negative) Urine Blood Negative /uL (Negative) Urine Nitrite Negative (Negative) Urine Bilirubin Negative (Negative) Urine Urobilinogen Normal mg/dL (Negative) Urine Leukocyte Esterase Negative /uL (Negative) Urine RBC None seen /hpf (0 - 4) Urine Microscopic WBC 1 /HPF (0-5) Urine Squamous Epithelial Cells Few /hpf (<5) Urine Bacteria None seen /hpf (None Seen) Urine Hyaline Casts Few /lpf (0 - 2) Urine Glucose Normal mg/dL (Normal) Other Laboratory Tests 11/17/24 05:27 Brief Hx & Hospital Course: Negar Mittal is a 54-year-old female with past medical history of arthritis, anemia, celiac disease, hypotension, and colonoscopy who presents to the ED with SOB x2 weeks with cough. Patient reports that she has been having a productive yellow phlegm when coughing. Patient reports that the shortness of breath started when she was sleeping in her bed. Patient denies any recent sick contacts, recent travels, recent ingestion of spoiled food, fever, chills, lightheadedness, weakness, dizziness, chest pain, abdominal pain, nausea, vomiting, or diarrhea. Upon examination patient is using a right-sided cane with ambulation. With minimal exertion noted she endorses shortness of breath. Hospital course: Patient was admitted on the line of pneumonia, the patient was given empiric antibiotic of Rocephin, breathing treatment, IV fluid and pain management. Chest CT scan was performed, showed mediastinal and bilateral hilar lymphadenopathy which may be reactive/neoplastic, bilateral axillary lymphadenopathy which may be reactive/neoplastic and 1 cm right lower lobe solid nodular opacity with additional 1.1 cm right lower lobe ground-glass nodular opacity. IR consulted for possible needle biopsy, recommended too small to be biopsied and recommended follow up on outpatient basis with hematology/oncology . Home medication were continued. On 11/18/2023, the patient was feeling better since admission. Discharge plan discussed with the patient the patient discharged home. Discharge plan: Follow up with the PCP within 1. Follow up with the Hematology/Oncology for the pulmonary nodules and possible biopsy Continue home meds Augmentin b.i.d. for 5 days Azithromycin daily for 5 days Operations or Procedures [place] [id number] Ph: [phone] DIAGNOSTIC IMAGING Diagnostic Imaging Report : [id number] Signed PATIENT: COURTNEY MITTALAACCT: [id number] UNIT: [id number] : 1970 LOC: OVERFLOW ROOM / BED: 1017-ER / A AGE / SEX: 54 / F ADM STATUS: ADM IN SERVICE 1402 ORDERING PHYSICIAN: ELIJAH TRAORE PROCEDURE(s): CXRCT - CT CHEST WITH AND WO REASON: r/o pe ORDER NUMBER(s): [id number], ACCESSION NUMBER(s): [id number] Procedure: CT CT CHEST WITH AND WO 11/15/2024 02:15 PM History: r/o pe Comparison: None Technique: After the uneventful administration of contrast intravenously, CT imaging was performed through the chest. Coronal and sagittal reformations were performed by the technologist. 3D image postprocessing was performed on a dedicated workstation and images were used for interpretation and reporting. Radiation Dose : CT Dose: CTDI volume is 4.59 mGy. Dose-length product is 324.69 mGy*cm Findings: The thyroid gland is unremarkable. No pulmonary embolism. No aortic aneurysm or dissection. The pulmonary trunk is normal in size. Heart size is within normal limits. There is mediastinal and bilateral hilar lymphadenopathy measuring up to 1.6 cm in short axis. No pneumothorax, pleural effusion or focal airspace consolidation. Few scattered blebs. 2 mm right middle lobe solid nodule. 1 cm right lower lobe nodular opacity. There is Additional right lower lobe 1.1 cm subtle ground-glass opacity. Lingula and right middle lobe atelectasis. Mild wall thickening of partially visualized proximal small bowel loops. Otherwise, Partial view of the upper abdomen is unremarkable. Prominent bilateral axillary lymph nodes measuring up to 1.2 cm on the right and 1.1 cm on the left. Soft tissues are unremarkable. No destructive osseous lesions are noted. IMPRESSION: No pulmonary embolism. No aortic aneurysm or dissection. Mediastinal and bilateral hilar lymphadenopathy which may be reactive/neoplastic. Bilateral axillary lymphadenopathy which may be reactive/neoplastic. 1 cm right lower lobe solid nodular opacity with additional 1.1 cm right lower lobe ground-glass nodular opacity . Neoplastic nodules are within the differential. Follow-up is recommended. Additional 2 mm right middle lobe solid nodule is noted. Mild wall thickening of partially visualized proximal small bowel loops which may be due to inadequate distention/enteritis. ATED BY: JESSIE RODRIGUEZ DO DICTATED DATE/TIME: 11/15/24 1517 SIGNED BY: JESSIE RODRIGUEZ DO SIGNED DATE/TIME: 11/15/24 4785 CC: Condition at Discharge: Stable Final Diagnosis/Problems List Pneumonia, likely due to Gram-positive Gram-negative bacteria Chest pain, likely due to pneumonia Pulmonary nodule, likely lung cancer History of scleroderma History of hypertension Vertigo Continue home meds History of moderate anemia History of arthritis History of celiac disease Ruled out pulmonary emboli Discharge Disposition: Home Discharge Instruct/Medications Diet: Regular Activity: No Restrictions, As Tolerated Follow Up/Referral: Follow up with the PCP within 1 week after discharge. Follow up with the Hematology/Oncology for pulmonary nodule. Medications: Tablet Augmentin b.i.d. for 5 days Tablet azithromycin daily for 5 days Continue home meds Discharge Statement: "Patient was advised to return to the ER or call 911 if any headaches, dizziness, shortness of breath, chest pain, abdominal pain, bleeding, fevers, or worsening of medical condition. Patient was counseled about treatment plan, medications, possible side effects, patientverbalized understanding. All questions were answered to the best of my ability. This discharge took greater then 30 minutes in planning, reviewing documentation, counseling the patient, and discussing with other team members." ASSESSMENT ASSESSMENT Assessment Pneumonia Date of Service: November 17, 2024 Billing Provider: AROLDO ESPINOZA DO Common Visit Codes: 22338-STR/OBS DISCH DAY >30min RADHA RAMOS RESDIENT November 17, 2024 10:23 AROLDO ESPINOZA DO November 17, 2024 19:37
[2024-11-17] MEDS: SODIUM CHLORIDE 0.9% 500 ML IV ONE (12:58)
[2024-11-18] VITALS (7 sets, daily range): BP systolic 95–112; BP diastolic 50–63; PULSE 57–67; RESP 16–18; TEMP 37.4; O2SAT 98–100
--- NOTE | 2024-11-18 11:08 | DVHPNRES ---
Progress Note Date Seen: November 18, 2024 Resident Creating Document: ELIZABETH GARCIA RESIDENT Has the PT tested + for MRSA If YES, has PT been informed?: Yes Medical Necessity Reason Pt with a Central, PICC or Fol: No Subjective Review of Systems Patient was admitted on the line of pneumonia, the patient was given empiric antibiotic of Rocephin, breathing treatment, IV fluid and pain management. Chest CT scan was performed, showed mediastinal and bilateral hilar lymphadenopathy which may be reactive/neoplastic, bilateral axillary lymphadenopathy which may be reactive/neoplastic and 1 cm right lower lobe solid nodular opacity with additional 1.1 cm right lower lobe ground-glass nodular opacity. IR consulted for possible needle biopsy, recommended too small to be biopsied and recommended follow up on outpatient basis with hematology/oncology . Home medication were continued. On 11/18/2023, the patient was feeling better since admission. Discharge plan discussed with the patient the patient discharged home. Patient was seen today for clinical evaluation. Patient denied any acute shortness of breath. Reported feeling better today, cough and shortness of breaths has improved a lot. Patient in room air. Patient was discharged last night. Patient is likely to go home today. Objective vital signs Vital Sign Date Time Temp Pulse Resp B/P (MAP) Pulse Ox O2 Delivery O2 Flow Rate FiO2 11/18/24 09:00 99.3 57 18 101/50 (67) 100 99.3 11/18/24 08:00 Room Air* 0 21 Total Intake and Output 11/17/24 11/17/24 11/18/24 15:00 23:00 07:00 Intake Total 460 ml 440 ml 160 ml Output Total 800 ml 400 ml Balance 460 ml -360 ml -240 ml medications Current Medications Medications Dose Ordered Sig/Preet Route Start Time Stop Time Status Last Admin Dose Admin Ondansetron HCl 4 mg Q4HP PRN IV 11/15/24 14:00 11/16/24 00:18 4 MG Enoxaparin Sodium 30 mg DAILY SC 11/16/24 10:00 11/18/24 09:51 30 MG Acetaminophen 650 mg Q6HP PRN PO 11/15/24 14:00 Pantoprazole Sodium 40 mg DAILY PO 11/16/24 10:00 11/18/24 09:26 40 MG Folic Acid 1 mg DAILY PO 11/16/24 10:00 11/18/24 09:26 1 MG Ceftriaxone Sodium 50 ml @ 100 mls/hr DAILY@09 IV 11/15/24 14:00 11/18/24 09:26 100 MLS/HR Albuterol 2.5 mg Q4HPRN PRN NEB 11/15/24 14:15 11/17/24 21:22 2.5 MG Ipratropium [place] 0.5 mg Q4HPRN PRN NEB 11/15/24 14:15 11/17/24 21:22 0.5 MG Methylprednisolone Sodium Succinate 40 mg Q8HR IV 11/15/24 14:15 11/18/24 07:04 40 MG Acetaminophen/ Hydrocodone Bitart 1 tab Q4HP PRN PO 11/16/24 09:45 Meclizine HCl 25 mg DAILY PRN PO 11/16/24 15:45 11/18/24 09:26 25 MG Methotrexate 20 mg Q7D PO 11/19/24 10:00 Examination General Appearance: Alert, Oriented X3, Cooperative, No acute distress HEENT: Atraumatic, PERRLA, EOMI, Mucous membrane moist/pink Respiratory: No rhonchi or wheezing Cardiovascular: Regular rate, Normal S1, Normal S2, No murmurs, no chest wall tenderness Abdominal: Normal bowel sounds, Soft, No tenderness, No hepatospenomegaly, No masses Extremities: No clubbing, No cyanosis, No edema, Normal pulses, No tenderness/swelling Skin: No rashes, No breakdown, No significant lesion Neuro: Normal gait, Normal speech, Strength at 5/5 X4 ext, Normal tone, Sensation intact, Cranial nerves 3-12 NL, Reflexes 2+ Psych/Mental Status: Mental status NL, Mood NL laboratory and microbiology Laboratory Tests 11/17/24 05:27 Test 11/17/24 05:27 Range/Units Serum Glucose 145 H 74-106 mg/dL Problem List/Assessment/Plan Problem List/Assessment/Plan Problem List/Assessment/Plan Pneumonia, likely due to Gram-positive Gram-negative bacteria Pulmonary nodule, likely lung cancer Chest CT scan shows, Mediastinal and bilateral hilar lymphadenopathy which may be reactive/neoplastic, bilateral axillary lymphadenopathy which may be reactive/neoplastic and 1 cm right lower lobe solid nodular opacity with additional 1.1 cm right lower lobe ground-glass nodular opacity IR consulted for possible needle biopsy, recommended the new dose too small to be biopsied Follow up on outpatient basis with hematology/oncology Empiric antibiotic, Rocephin Breathing treatment IV fluid Pain management History of scleroderma History of hypertension Vertigo Continue home meds History of moderate anemia Goals of care, Code status ; discussed with >15 minutes PUD prophylaxis: Pantoprazole DVT prophylaxis: Lovenox Plan discussed with Dr. dong , nursing staff, Total time spent on patient evaluation, chart review, assessment and plan, discussion discussion >35 minutes Plan discussed with: Patient, Other (RN) My Orders My Orders Orders - ELIZABETH GARCIA Procedure Category Date Status Time Discharge DISCHARGE 11/18/24 Verified 11:04 Date of Service: November 18, 2024 Billing Provider: AROLDO DONG DO Common Visit Codes: [id number] INP/OBS CARE(HIGH) ELIZABETH GARCIA November 18, 2024 11:08 AROLDO DONG DO November 19, 2024 17:46
[2024-11-19] MEDS ORDERED: METHOTREXATE 2.5 MG TAB PO SCH (10:00)
== END 2024-11-18 14:15 | disposition home or self-care (01) | DRG 137 ==
LOC: ER 09:40 → OVERFLOW 13:57 → EAST 11-16 02:00
PROVIDERS: ADMIT Internal Medicine; ATTEND Internal Medicine
DX: J15.69 Pneumonia due to other Gram-negative bacteria (principal); C34.92 Malignant neoplasm of unspecified part of left bronchus or lung; C34.91 Malignant neoplasm of unspecified part of right bronchus or lung; D64.9 Anemia, unspecified; A09 Infectious gastroenteritis and colitis, unspecified; K90.0 Celiac disease; J15.9 Unspecified bacterial pneumonia; L60.0 Ingrowing nail; Z82.49 Family history of ischemic heart disease and other diseases of the circulatory system; Z83.3 Family history of diabetes mellitus; Z79.899 Other long term (current) drug therapy; R42 Dizziness and giddiness
CPT/HCPCS: 36415; 71046; 71275; 80048; 80053; 81001; 83880; 84484; 85025; 85379; 85652; 86141; 87426; 87804; 93005; 94640; G0378; J2405